=== PATIENT | female | born 1955 | race African-American/Black ===

== ENCOUNTER → 2016-10-02 | Outpatient (CLI) | payer MEDICARE, OTHER ==
[2016-04-08 16:25] VITALS: BP 137/65
[~2016-10-02] MED LIST: ACET80DR18 PEG; ALBU2.5V5 NEB; ALLO100T PO; AMLO10TA2 PO; AMLO5TAB2 PEG; ASPI325T4 PO; ASPI81TA9 PO; BACL10TA PO; BISA10SU55 RC; CHOL10007 PO; CHOL20004 PO; CINA60TA PO; CLON0.1T PO; CLON0.2T PO; CLON1PAT TD; DARB60VI SQ; DEXT15DR5 EACHEYE; DOXA2TAB2 PO; ENOX40DI SQ; ESCI10TA10 PO; FENT50AM IJ; FENT50AM IV; FERR324T5 PO; GABA-585 PO; GENT30CR TP; HYDR-2678 PO; HYDR-2868 PO; HYDR-2869 PO; HYDR100T24 PO; HYDR20VI5 IVP; INSU100C SQ; IPRA3AMP23 IH; ISOS20TA2 PO; ISOS30TA4 PO; LABE100T3 PO; LABE5VIA IV; LACT20SO PO; LANT1000 PO; LEVE500V12 IV; LEVE500V7 IV; LEVO150T5 PO; LIDO30CR TP; LISI40TA PO; LORA10TA3 PO; LORA2DIS2 IV; LOSA100T6 PO; LOSA25TA4 PO; METO25TA4 PO; METO50TA2 PO; METO5VIA4 IVP; NITR1PAT9 TD; NITR50IN IV; OMEG-33 PO; ONDA4AMP IVP; ORPH100T PO; PANT40TA5 PO; PRAV20TA2 PO; PROC10VI IVP; SEVE800T9 PO; VIT1TABL57 PO; [UNRECOGNIZED DRUG - CODE] IV; [UNRECOGNIZED DRUG - CODE] IV
--- NOTE | 2016-10-02 17:07 | CARD ---
APPROVED REPORT EXAM: Two-dimensional and M-mode echocardiogram with Doppler and color Doppler. Other Information Quality : Technically LimitedHR: 51bpm Rhythm : Bradycardia INDICATION Cardiomyopathy 2D DIMENSIONS RVDd2.5 (2.9-3.5cm)Left Atrium(2D)2.8 (1.6-4.0cm) IVSd1.2 (0.7-1.1cm)Aortic Root(2D)2.7 (2.0-3.7cm) LVDd4.2 (3.9-5.9cm)LVOT Diameter2.1 (1.8-2.4cm) PWd1.2 (0.7-1.1cm)LVDs3.6 (2.5-4.0cm) FS (%) 14.5 %SV24.3 ml LVEF(%)31.2 (>50%) Aortic Valve AoV Peak Justin.207.8cm/sAoV VTI47.4cm AO Peak GR.17.3mmHgLVOT Peak Justin.158.9cm/s LVOT VTI 39.21cmAO Mean GR.8mmHg EBONY (VMAX)1.10he8KCU (VTI)2.73cm2 AI P 1/2 Eqkt171fn Mitral Valve MV E Yzgvjprr63.0cm/sMV DECEL OCIM247xe MV A Erixlayl03.6cm/sMV KFW14aa E/A Ratio1.1MVA (PHT)2.62cm2 TDI E/Lateral E'8.7E/Medial E'11.7 Pulmonary Valve PV Peak Fysojaeh536.9cm/sPV Peak Grad.6mmHg RVOT VTI17.6cm Tricuspid Valve TR P. Ihhajkbu395sb/sTR Peak Gr.30mmHg Pulmonary Vein S1 Hsceqkmg22.2cm/sD2 Tsktkrdf73.9cm/s PVa xcqhazxw994smde LEFT VENTRICLE The left ventricle is normal size. There is mild concentric left ventricular hypertrophy. The left ve ntricular systolic function is normal and the ejection fraction is within normal range. The Ejection Fraction is 50-55%. There is normal LV segmental wall motion. Transmitral Doppler flow pattern is Gra de II-pseudonormal filling dynamics. RIGHT VENTRICLE The right ventricle is normal size. There is normal right ventricular wall thickness. The right ventr icular systolic function is normal. ATRIA The left atrium size is normal. The right atrium size is normal. The interatrial septum is intact wit h no evidence for an atrial septal defect or patent foramen ovale as noted on 2-D or Doppler imaging. AORTIC VALVE The aortic valve was poorly seen but appears moderately sclerotic and opens well. Cannot rule out emery or bioprosthetic valve replacement. Doppler and Color Flow revealed mild to moderate aortic regurgita tion. There is no significant aortic valvular stenosis. MITRAL VALVE Poorly seen mitral valve but it appears to open well. There appears to be mild mitral valve annular c alcification. There is no evidence of mitral valve prolapse. There is no mitral valve stenosis. Doppl er and Color Flow revealed mild mitral regurgitation. TRICUSPID VALVE Doppler and Color Flow revealed mild tricuspid regurgitation. The pulmonary artery systolic pressure is estimated at 35 mmHg. There is mild pulmonary hypertension. PULMONIC VALVE Poorly seen pulmonary valve. Doppler and Color Flow revealed mild pulmonic valvular regurgitation. GREAT VESSELS The aortic root is normal in size. The ascending aorta is normal in size. The pulmonary artery was po pramod seen. The IVC is normal in size and collapses >50% with inspiration. PERICARDIAL EFFUSION There is no evidence of significant pericardial effusion. Critical Notification Critical Value: No <Conclusion> The left ventricular systolic function is normal and the ejection fraction is within normal range. Th e Ejection Fraction is 50-55%. There is normal LV segmental wall motion. The aortic valve was poorly seen but appears moderately sclerotic and opens well. Cannot rule out emery or bioprosthetic valve replacement. Doppler and Color Flow revealed mild to moderate aortic regurgitation. Doppler and Color Flow revealed mild mitral regurgitation. Doppler and Color Flow revealed mild tricuspid regurgitation. The pulmonary artery systolic pressure is estimated at 35 mmHg. There is mild pulmonary hypertension. Poorly seen pulmonary valve. Doppler and Color Flow revealed mild pulmonic valvular regurgitation.
== END | disposition home or self-care (01) ==
LOC: ECHO 13:56
PROVIDERS: ATTEND Internal Medicine Nephrology
DX: I42.9 Cardiomyopathy, unspecified (principal); I27.2 Other secondary pulmonary hypertension; I35.1 Nonrheumatic aortic (valve) insufficiency; I34.0 Nonrheumatic mitral (valve) insufficiency; I07.1 Rheumatic tricuspid insufficiency
CPT/HCPCS: 93306

== ENCOUNTER 2017-06-12 15:34 | Inpatient (IN) | payer MEDICARE, OTHER ==
[2017-06-12] VITALS (13 sets, daily range): BP systolic 185–214; BP diastolic 73–122
[~2017-06-12] VITALS: Ht 170.2 cm; Wt 71.7 kg
[~2017-06-12 15:34] MED LIST changes: +ASPI-612 PO; -ASPI325T4 PO; +ASPI325T8 PO; -ASPI81TA9 PO; +CALC667T PO; +CHOL100014 PO; -CHOL10007 PO; -CHOL20004 PO; +CHOL200074 PO; -ESCI10TA10 PO; -LABE5VIA IV; +LABE5VIA14 IV; +LEXAPRO10 MG PO; +LORA0.5T PO; +MIDO2.5T PO
[2017-06-12 16:41] LABS: BASO % 0 % (0-3); EOS % 0 % (0-3); HEMATOCRIT 25.9 % (36.0-47.0); HEMOGLOBIN 8.6 g/dL (12.0-15.5); LYMPH # 0.5 x10^3/uL (1.0-4.8); LYMPH % 7 % (24-48); MEAN CORPUSCULAR HEMOGLOBIN 30 pg (25-35); MEAN CORPUSCULAR HGB CONC 33 g/dL (31-37); MEAN CORPUSCULAR VOLUME 90 fL (79-100); MONO % 9 % (0-9); NEUT % 84 % (31-73); PLATELET COUNT 158 x10^3/uL (140-400); RED BLOOD COUNT 2.87 x10^6/uL (3.50-5.40); WHITE BLOOD COUNT 7.9 x10^3/uL (4.0-11.0)
--- NOTE | 2017-06-12 16:42 | PHYS DOC ---
Past Medical History Past Medical History: Anxiety, High Cholesterol, Hypertension, Hypothyroid, Renal Failure, Seizure, Other Additional Past Medical Histor: kidney failure, murmer, HEMODIAYLSIS, "AORTIC RUPTURE" Past Surgical History: Other Additional Past Surgical Histo: thyroidectomy, peritoneal dialysis, "AORTIC REPAIR" Alcohol Use: None Drug Use: None Adult General Chief Complaint Chief Complaint: FEVER HPI HPI Patient is a 62 year old -[place] female with history of end-stage renal disease currently on dialysis who presents with fever, productive, progressive shortness of breath over the past 2 days. Patient is also had confusion, generalized weakness and fatigue. Patient has history of aspiration pneumonia. Patient was evaluated at her PCPs office prior to ED arrival and referred to ED for additional evaluation. He should dialyzes Saturday, and Saturdays. She completed her last dialysis session. Patient does not make any urine.[] Review of Systems Review of Systems Review symptoms as per history of present illness. All other review symptoms are negative. Current Medications Current Medications Current Medications Medications (Trade) Dose Ordered Sig/Filippo Start Time Stop Time Status Last Admin Dose Admin Albuterol/ Ipratropium (Duoneb) 3 ml 1X ONCE 06/12/17 16:45 06/12/17 16:46 DC 06/12/17 17:15 3 ML Piperacillin Sod/ Tazobactam Sod 3.375 gm/Sodium Chloride 50 ml @ 100 mls/hr 1X ONCE 06/12/17 19:15 06/12/17 19:44 Allergies Allergies Allergies Coded Allergies Type Severity Reaction Last Updated Verified morphine Allergy Intermediate 05/04/14 Yes Physical Exam Physical Exam Constitutional: Well developed, generally fatigued and weak appearing.. [] HENT: Normocephalic, atraumatic, bilateral external ears normal, oropharynx moist, no oral exudates, nose normal. [] Eyes: PERRLA, EOMI, conjunctiva normal, no discharge. [] Neck: Normal range of motion, no tenderness, supple, no stridor. [] Cardiovascular:Heart rate regular rhythm, no murmur [] Lungs & Thorax: Abrasions nonlabored, coarse wheezes bilaterally.[] Abdomen: Bowel sounds normal, soft, no tenderness. [] Skin: Warm, dry, no erythema, no rash. [] Extremities: No tenderness, no cyanosis, no clubbing, ROM intact, no edema. [] Neurologic: Alert and oriented 2 lower extremity paresis with leg brace, normal sensory function, no focal deficits noted. [] Current Patient Data Vital Signs Vital Signs Date Time Temp Pulse Resp B/P (MAP) Pulse Ox O2 Delivery O2 Flow Rate FiO2 06/12/17 17:09 89 Room Air 06/12/17 15:45 99.7 75 21 205/91 (129) 99.7 Lab Values Laboratory Tests Test 06/12/17 15:52 06/12/17 16:00 06/12/17 16:28 Influenza Type A Antigen Negative (NEGATIVE) Influenza Type B Antigen Negative (NEGATIVE) White Blood Count 7.9 x10^3/uL (4.0-11.0) Red Blood Count 2.87 x10^6/uL (3.50-5.40) L Hemoglobin 8.6 g/dL (12.0-15.5) L Hematocrit 25.9 % (36.0-47.0) L Mean Corpuscular Volume 90 fL (79-100) Mean Corpuscular Hemoglobin 30 pg (25-35) Mean Corpuscular Hemoglobin Concent 33 g/dL (31-37) Red Cell Distribution Width 17.0 % (11.5-14.5) H Platelet Count 158 x10^3/uL (140-400) Neutrophils (%) (Auto) 84 % (31-73) H Lymphocytes (%) (Auto) 7 % (24-48) L Monocytes (%) (Auto) 9 % (0-9) Eosinophils (%) (Auto) 0 % (0-3) Basophils (%) (Auto) 0 % (0-3) Neutrophils # (Auto) 6.7 x10^3uL (1.8-7.7) Lymphocytes # (Auto) 0.5 x10^3/uL (1.0-4.8) L Monocytes # (Auto) 0.7 x10^3/uL (0.0-1.1) Eosinophils # (Auto) 0.0 x10^3/uL (0.0-0.7) Basophils # (Auto) 0.0 x10^3/uL (0.0-0.2) Sodium Level 138 mmol/L (136-145) Potassium Level 4.1 mmol/L (3.5-5.1) Chloride Level 98 mmol/L (98-107) Carbon Dioxide Level 31 mmol/L (21-32) Anion Gap 9 (6-14) Blood Urea Nitrogen 26 mg/dL (7-20) H Creatinine 7.0 mg/dL (0.6-1.0) H Estimated GFR (Cockcroft-Gault) 7.2 BUN/Creatinine Ratio 4 (6-20) L Glucose Level 97 mg/dL (70-99) Lactic Acid Level 1.3 mmol/L (0.4-2.0) Calcium Level 9.3 mg/dL (8.5-10.1) Total Bilirubin 0.4 mg/dL (0.2-1.0) Aspartate Amino Transferase (AST) 29 U/L (15-37) Alanine Aminotransferase (ALT) 22 U/L (14-59) Alkaline Phosphatase 121 U/L (46-116) H Creatine Kinase 403 U/L (26-192) H Troponin I Quantitative 0.076 ng/mL (0.000-0.055) AR-Xuj-W-Type Natriuretic Peptide > 16253 pg/mL (0-124) H Total Protein 7.5 g/dL (6.4-8.2) Albumin 3.9 g/dL (3.4-5.0) Albumin/Globulin Ratio 1.1 (1.0-1.7) Procalcitonin 1.08 ng/mL (0.00-0.10) H O2 Saturation 85 % (92-99) L Arterial Blood pH 7.48 (7.35-7.45) H Arterial Blood pCO2 at Patient Temp 38 mmHg (35-46) Arterial Blood pO2 at Patient Temp 52 mmHg (65-108) L Arterial Blood HCO3 27 mmol/L (21-28) Arterial Blood Base Excess 4 mmol/L (-3-3) H FiO2 21 Laboratory Tests 06/12/17 16:00 Laboratory Tests 06/12/17 16:00 EKG EKG [EKG: Sinus rhythm, rate 69, no acute ST-T wave changes, QTC 456. No pathologic Q waves. EKG interpreted me.] Radiology/Procedures Radiology/Procedures [Chest x-ray: Pulmonary vascular congestion with possible effusions per radiology report.] Course & Med Decision Making Course & Med Decision Making Pertinent Labs and Imaging studies reviewed. (See chart for details) [Patient with generalized weakness fatigue and malaise with acute respiratory failure with hypoxia. Patient placed on oxygen. Evidence of congestive heart failure with effusions. No discrete infiltrate identified, however, possible aspiration pneumonia not ruled out. Patient is afebrile with normal white blood cell. Patient chronically hypertensive. Compliant with medications. Case reviewed with Dr. Lira in detail. Patient's are for inpatient hospitalization , dialysis consult and IV Zosyn. Dr. Amaro extension supervisor for nephrology consulted for coordination of inpatient dialysis.] Dragon Disclaimer Dragon Disclaimer This electronic medical record was generated, in whole or in part, using a voice recognition dictation system. Departure Departure Impression: Primary Impression: Acute respiratory failure Additional Impressions: Congestive heart failure Aspiration into lower respiratory tract Disposition: ADMITTED INPATIENT Admitting Physician: Leonel Lira Condition: GUARDED Referrals: BEBE CAMERON (PCP) Problem Qualifiers ARCENIO COHEN DO Jun 12, 2017 16:42
[2017-06-12] MEDS ORDERED: IPRATRPIUM/ALBUTEROL 0.5/2.5MG 3 ML NEBU. NEB ONE (16:45)
[2017-06-12 16:53] LABS: CALCIUM 9.3 mg/dL (8.5-10.1); GFR 7.2; POTASSIUM 4.1 mmol/L (3.5-5.1)
--- NOTE | 2017-06-12 16:56 | RAD ---
Indication fever and shortness of breath. A single view of the chest was obtained and is compared to an examination 03/02/2017. Postoperative changes are noted. There is mild enlargement of the cardiac silhouette. There are background changes suggesting moderate congestive heart failure. There are likely tiny pleural effusions. There is no consolidated pneumonia. A vascular stent is noted in the left axilla. An additional stent is seen in the mediastinum IMPRESSION: Mild cardiomegaly. Probable mild congestive heart failure. Small pleural effusions.
[2017-06-12 17:03] LABS: OBC FLU VALID
[2017-06-12 17:08] LABS: ALBUMIN 3.9 g/dL (3.4-5.0); ALBUMIN/GLOBULIN RATIO 1.1 (1.0-1.7); TOTAL BILIRUBIN 0.4 mg/dL (0.2-1.0); TOTAL PROTEIN 7.5 g/dL (6.4-8.2)
[2017-06-12 17:50] LABS: HCO3 ABG 27 mmol/L (21-28); PCO2 ABG 38 mmHg (35-46); PH ABG 7.48 (7.35-7.45); PO2 ABG 52 mmHg (65-108); SAT O2 ABG 85 % (92-99)
[2017-06-12 17:59] LABS: FIO2 ABG 21
[2017-06-12] MEDS ORDERED: ATOR10TA60 PO (18:26)
[2017-06-12] MEDS ORDERED: BACL10TA PO (18:27)
[2017-06-12] MEDS ORDERED: DOCU100C28 PO (18:28)
[2017-06-12] MEDS ORDERED: LACO50TA PO (18:30)
[2017-06-12] MEDS ORDERED: LACO100T PO ×2 (18:33)
[2017-06-12] MEDS ORDERED: LEVE100020 PO (18:36)
[2017-06-12] MEDS ORDERED: LEVE500T6 PO (18:37)
[2017-06-12] MEDS ORDERED: LEVO100T5 PO (18:38)
[2017-06-12] MEDS ORDERED: POLY255P PO (18:40)
[2017-06-12] MEDS ORDERED: MIDO5TAB PO (18:41)
[2017-06-12] MEDS ORDERED: PIPERACILLIN/TAZOBACTAM 3.375 GM in IV NORMAL SALINE 50ML 50 ML IV ONE (19:15)
[2017-06-12] MEDS ORDERED: ONDANSETRON PF 4 MG/2 ML VIAL. IV PRN (19:15)
[2017-06-12] MEDS ORDERED: hydrALAZINE 20 MG/ML VIAL. IVP PRN (20:30)
[2017-06-12] MEDS: IPRATRPIUM/ALBUTEROL 0.5/2.5MG 3 ML NEBU. NEB SCH (20:35)
[2017-06-12] MEDS: VANCOMYCIN PER PHARMACY MC PRN (20:36)
[2017-06-12] MEDS ORDERED: LEXAPRO20 MG PO (20:39)
[2017-06-12] MEDS ORDERED: LACT10SO35 PO (20:39)
[2017-06-12] MEDS ORDERED: LACTULOSE 20 GM/30 ML SOLUTION. PO PRN (20:45)
[2017-06-12] MEDS ORDERED: VANCOMYCIN 1.5 GM in IV NORMAL SALINE 500ML BAG 500 ML IV ONE (20:45)
[2017-06-12] MEDS: ACETAMINOPHEN 650 MG/20.3 ML SOLUTION. PEG PRN ×2 (21:00→21:01)
[2017-06-12] MEDS ORDERED: IV NORMAL SALINE 1000ML BAG 1,000 ML IV PRN (22:31)
[2017-06-12] MEDS ORDERED: DIALYSIS PATIENT. MC PRN (22:45)
[2017-06-12] MEDS: LACOSAMIDE 50 MG TABLET PO SCH (23:59)
[2017-06-12] MEDS: levETIRAcetam 500 MG TABLET PO SCH (23:59)
[2017-06-12] MEDS: BACLOFEN 10 MG TABLET. PO SCH (23:59)
[2017-06-13] VITALS (22 sets, daily range): BP systolic 111–190; BP diastolic 47–81
[2017-06-13] MEDS ORDERED: hydrALAZINE 20 MG/ML VIAL. IVP PRN (00:30)
[2017-06-13] MEDS: HYDROcodone/APAP 5/325MG 1 TAB TABLET PO PRN (00:38)
[2017-06-13] MEDS: PIPERACILLIN/TAZOBACTAM 2.25 GM in IV NORMAL SALINE 50ML 50 ML IV SCH ×3 (05:43→21:30)
--- NOTE | 2017-06-13 06:47 | EKG ---
[facility] [address] [place] [address] Test Date: 2017-06-12 Test Time: 16:49:59 Pat Name: OPHELIA RODRIGUEZ Department: Room: 113 1 Gender: F [employer]: : 1955 Requested By: ARCENIO COHEN Order Number: [id number] Reading MD: Cielo Ceron Measurements Intervals Macy Rate: 69 P: 30 WI: 130 QRS: -6 QRSD: 86 T: 55 QT: 424 QTc: 456 Interpretive Statements SINUS RHYTHM LEFT ATRIAL ABNORMALITY LEFTWARD AXIS Electronically Signed On 06-16-2017 15:29:12 CDT by Cielo Ceron
[2017-06-13] MEDS: LEVOTHYROXINE 100 MCG TABLET PO SCH (07:25)
[2017-06-13] MEDS: PANTOPRAZOLE 40 MG TABLET.DR. PO SCH (07:37)
[2017-06-13 08:27] LABS: BASO % 1 % (0-3); EOS % 1 % (0-3); HEMATOCRIT 23.5 % (36.0-47.0); HEMOGLOBIN 7.8 g/dL (12.0-15.5); LYMPH # 0.6 x10^3/uL (1.0-4.8); LYMPH % 10 % (24-48); MEAN CORPUSCULAR HEMOGLOBIN 30 pg (25-35); MEAN CORPUSCULAR HGB CONC 33 g/dL (31-37); MEAN CORPUSCULAR VOLUME 90 fL (79-100); MONO % 12 % (0-9); NEUT % 77 % (31-73); PLATELET COUNT 130 x10^3/uL (140-400); RED BLOOD COUNT 2.62 x10^6/uL (3.50-5.40); RED CELL DISTRIBUTION WIDTH 16.6 % (11.5-14.5); WHITE BLOOD COUNT 5.8 x10^3/uL (4.0-11.0)
[2017-06-13] MEDS: CETIRIZINE HCL 10 MG TABLET. PO SCH (08:35)
[2017-06-13] MEDS: LACOSAMIDE 50 MG TABLET PO SCH ×2 (08:35→21:21)
[2017-06-13] MEDS: CALCIUM ACETATE 667 MG CAPSULE PO SCH ×3 (08:35→18:07)
[2017-06-13 08:36] LABS: CALCIUM 8.8 mg/dL (8.5-10.1); CREATININE 4.4 mg/dL (0.6-1.0); GFR 12.3; POTASSIUM 3.6 mmol/L (3.5-5.1)
[2017-06-13] MEDS: CHOLECALCIFEROL (VITAMIN D3) 1,000 UNIT TABLET PO SCH (08:36)
[2017-06-13] MEDS: levETIRAcetam 500 MG TABLET PO SCH ×2 (08:36→21:21)
[2017-06-13] MEDS: CITALOPRAM 20 MG TABLET. PO SCH (08:36)
[2017-06-13] MEDS: ATORVASTATIN CALCIUM 10 MG TABLET. PO SCH (08:36)
[2017-06-13] MEDS: POLYETHYLENE GLYCOL 3350 17 GM PACKET. PO SCH (08:36)
[2017-06-13] MEDS: ASPIRIN ENTERIC COATED 81 MG TABLET.DR. PO SCH (08:36)
[2017-06-13] MEDS: IPRATRPIUM/ALBUTEROL 0.5/2.5MG 3 ML NEBU. NEB SCH ×3 (08:37→15:40)
[2017-06-13] MEDS: HEPARIN PF for SUB-Q USE 5,000 UNIT/0.5 ML VIAL. SQ SCH ×2 (08:39→21:25)
--- NOTE | 2017-06-13 09:05 | PDOC ---
Infectious Disease Note Vital Sign Vital Signs Vital Signs Date Time Temp Pulse Resp B/P (MAP) Pulse Ox O2 Delivery O2 Flow Rate FiO2 06/13/17 08:38 100 Nasal Cannula 1.5 06/13/17 07:00 16 118/57 (77) 06/13/17 06:00 55 06/13/17 04:00 99.7 99.7 Labs Lab Laboratory Tests Test 06/12/17 15:52 06/12/17 16:00 06/12/17 16:28 06/13/17 08:10 Influenza Type A Antigen Negative (NEGATIVE) Influenza Type B Antigen Negative (NEGATIVE) White Blood Count 7.9 x10^3/uL (4.0-11.0) 5.8 x10^3/uL (4.0-11.0) Red Blood Count 2.87 x10^6/uL (3.50-5.40) 2.62 x10^6/uL (3.50-5.40) Hemoglobin 8.6 g/dL (12.0-15.5) 7.8 g/dL (12.0-15.5) Hematocrit 25.9 % (36.0-47.0) 23.5 % (36.0-47.0) Mean Corpuscular Volume 90 fL (79-100) 90 fL (79-100) Mean Corpuscular Hemoglobin 30 pg (25-35) 30 pg (25-35) Mean Corpuscular Hemoglobin Concent 33 g/dL (31-37) 33 g/dL (31-37) Red Cell Distribution Width 17.0 % (11.5-14.5) 16.6 % (11.5-14.5) Platelet Count 158 x10^3/uL (140-400) 130 x10^3/uL (140-400) Neutrophils (%) (Auto) 84 % (31-73) 77 % (31-73) Lymphocytes (%) (Auto) 7 % (24-48) 10 % (24-48) Monocytes (%) (Auto) 9 % (0-9) 12 % (0-9) Eosinophils (%) (Auto) 0 % (0-3) 1 % (0-3) Basophils (%) (Auto) 0 % (0-3) 1 % (0-3) Neutrophils # (Auto) 6.7 x10^3uL (1.8-7.7) 4.4 x10^3uL (1.8-7.7) Lymphocytes # (Auto) 0.5 x10^3/uL (1.0-4.8) 0.6 x10^3/uL (1.0-4.8) Monocytes # (Auto) 0.7 x10^3/uL (0.0-1.1) 0.7 x10^3/uL (0.0-1.1) Eosinophils # (Auto) 0.0 x10^3/uL (0.0-0.7) 0.0 x10^3/uL (0.0-0.7) Basophils # (Auto) 0.0 x10^3/uL (0.0-0.2) 0.0 x10^3/uL (0.0-0.2) Sodium Level 138 mmol/L (136-145) 140 mmol/L (136-145) Potassium Level 4.1 mmol/L (3.5-5.1) 3.6 mmol/L (3.5-5.1) Chloride Level 98 mmol/L (98-107) 100 mmol/L (98-107) Carbon Dioxide Level 31 mmol/L (21-32) 32 mmol/L (21-32) Anion Gap 9 (6-14) 8 (6-14) Blood Urea Nitrogen 26 mg/dL (7-20) 14 mg/dL (7-20) Creatinine 7.0 mg/dL (0.6-1.0) 4.4 mg/dL (0.6-1.0) Estimated GFR (Cockcroft-Gault) 7.2 12.3 BUN/Creatinine Ratio 4 (6-20) Glucose Level 97 mg/dL (70-99) 94 mg/dL (70-99) Lactic Acid Level 1.3 mmol/L (0.4-2.0) Calcium Level 9.3 mg/dL (8.5-10.1) 8.8 mg/dL (8.5-10.1) Total Bilirubin 0.4 mg/dL (0.2-1.0) Aspartate Amino Transf (AST/SGOT) 29 U/L (15-37) Alanine Aminotransferase (ALT/SGPT) 22 U/L (14-59) Alkaline Phosphatase 121 U/L (46-116) Creatine Kinase 403 U/L (26-192) Troponin I Quantitative 0.076 ng/mL (0.000-0.055) NP-Yco-G-Type Natriuretic Peptide > 60365 pg/mL (0-124) Total Protein 7.5 g/dL (6.4-8.2) Albumin 3.9 g/dL (3.4-5.0) Albumin/Globulin Ratio 1.1 (1.0-1.7) Procalcitonin 1.08 ng/mL (0.00-0.10) O2 Saturation 85 % (92-99) Arterial Blood pH 7.48 (7.35-7.45) Arterial Blood pCO2 at Patient Temp 38 mmHg (35-46) Arterial Blood pO2 at Patient Temp 52 mmHg (65-108) Arterial Blood HCO3 27 mmol/L (21-28) Arterial Blood Base Excess 4 mmol/L (-3-3) FiO2 21 Objective Assessment Fever, ? viral ESRD SOB, chf Weakness Plan Plan of Care vanc and kalisyn check cultures supportive care MARSHA GOODMAN MD Jun 13, 2017 09:05
--- NOTE | 2017-06-13 10:09 | CONS ---
DATE OF CONSULTATION: 06/13/2017 REQUESTING PHYSICIAN: Dr. Lira. REQUESTING PHYSICIAN: Leonel Lira M.D. REASON FOR CONSULTATION: Fever. HISTORY OF PRESENT ILLNESS: This is a 62-year-old -[place] female with history of end-stage renal disease, on hemodialysis; who came in with 3-day history of not feeling well, progressive weakness, progressive shortness of breath, some nausea, had vomited, fever and headache. The patient was brought in. The patient had 101.5 temperature and normal lactic acid. The patient responded to fluids. She is feeling much better. She states the headache is gone. The patient received vancomycin and Zosyn. The patient is currently alert, awake, slow in speaking but appropriate in answering. She states she has had some nausea and vomiting. The headache is gone. The nausea is improved. Denies any chest pain or abdominal pain. Denies any urinary symptoms. Denies any visual symptoms or back pain. PAST MEDICAL HISTORY: Positive for end-stage renal disease, on hemodialysis; has hypertension; hypothyroidism; seizure disorder and has had thyroidectomy. She had been on peritoneal dialysis. Now, she has AV graft and anxiety disorder. SOCIAL HISTORY: Negative for smoking, alcohol use or drug use. The patient lives with her and son. ALLERGIES: Listed allergic to MORPHINE. CURRENT MEDICATIONS: Reviewed. The patient is on vancomycin and Zosyn. REVIEW OF SYSTEMS: As per HPI. All other systems reviewed and are negative. PHYSICAL EXAMINATION: GENERAL: Alert and oriented female, not in distress. VITAL SIGNS: Stable. T-max 101.5. HEENT: NAD. NECK: Stiff but she states she always has a neck problem and nothing new right now. LUNGS: Clear. HEART: S1 and S2 regular. ABDOMEN: Benign. EXTREMITIES: No edema or cyanosis. SKIN: Unremarkable. NEUROLOGICAL: The patient is neurologically alert, awake and appropriate. No focal deficit. LABORATORY DATA: White count is normal at 5.8; hemoglobin 7.8 and platelets are 130,000. BUN and creatinine is 14 and 4.4. Troponin 0.076. BNP 35,000. Influenza screen was negative. Blood culture is pending. Chest x-ray is showing cardiomegaly with mild pulmonary vascular congestion and small pleural effusions. IMPRESSION: 1. Fever may have been likely to be viral in origin, although she is a dialysis patient and secondary bacterial infection is quite common. 2. Weakness and fatigue and headache. Again, may go with viral illness. 3. Shortness of breath, probably combination of congestive heart failure and/or she may have aspirated after vomiting. Discussed with Dr Lira RECOMMENDATIONS: Recommend I would check the cultures. Continue vancomycin and Zosyn, supportive care and we will continue to follow. If she continues to have problem, we will have to do more investigation. Thank you very much Dr. Lira for giving me the opportunity to participate in this patient's care. MARSHA GOODMAN MD DR: HUGH/dennis JOB#: [id number] / [id number] TIAN
[2017-06-13] MEDS: VANCOMYCIN PER PHARMACY MC PRN (10:27)
--- NOTE | 2017-06-13 10:35 | PDOC ---
Provider Note Provider Note Pt seen in ICU. H&P #[id number] .dictated. spoke with ID and RN LINA ANDERSON MD Jun 13, 2017 10:35
--- NOTE | 2017-06-13 11:28 | PDOC2 ---
CONSULT Date of Consult Date of Consult DATE: 06/13/17 TIME: 11:24 Reason for Consult Reason for Consult: ESRD Referring Physician Referring Physician: JUSTIN Identification/Chief Complaint Chief Complaint SOB,HIGH, FEVERS AND N/V Problems: Source Source: Chart review, Patient History of Present Illness Reason for Visit: THIS IS A 62 YR OLD WITH ESRD ON HD ON MWF. PRESENTS WITH SOB AND CXRAY SHOWED PULMONARY VASCULAR CONGESTION. ALSO HX OF HEADACHE, FEVERS AND N/V FOR SEVERAL DAYS. LABS ARE C/W ESRD Past Medical History Cardiovascular: CHF, HTN, Valve insufficiency, Other Pulmonary: Previously Intubated, Pneumonia, Other CENTRAL NERVOUS SYSTEM: CVA, Seizure GI: Peptic Ulcer disease, Other Heme/Onc: Anemia NOS Hepatobiliary: Other Psych: Anxiety Rheumatologic: Gout Infectious disease: Other Renal/: Acute renal failure Endocrine: Hypothyroidism, Hyperparathyroidism Past Surgical History Past Surgical History: CABG, Cataract Removal, Other Family History Family History: Diabetes, Hypertension, Other Social History ALCOHOL: none Drugs: None Lives: with Family Domestic Violence: Neg Current Problem List Problem List Problems Medical Problems: (1) Acute respiratory failure Status: Acute (2) Aspiration into lower respiratory tract Status: Acute (3) Congestive heart failure Status: Acute Current Medications Current Medications Current Medications Albuterol/ Ipratropium (Duoneb) 3 ml 1X ONCE NEB Last administered on 17:15; Start 06/12/17 at 16:45; Stop 06/12/17 at 16:46; Status DC Piperacillin Sod/ Tazobactam Sod 3.375 gm/Sodium Chloride 50 ml @ 100 mls/hr 1X ONCE IV Last administered on 06/12/17 19:11; Start 06/12/17 at 19:15; Stop 06/12/17 at 19:44; Status DC Ondansetron HCl (Zofran) 4 mg PRN Q8HRS PRN IV NAUSEA/VOMITING; Start at 19:15; Stop 06/13/17 at 19:14 Albuterol/ Ipratropium (Duoneb) 3 ml RTQID NEB Last administered on 06/13/17 08:37; Start 06/12/17 at 20:00; Stop 06/13/17 at 19:59 Vancomycin HCl 1.5 gm/Sodium Chloride 500 ml @ 250 mls/hr 1X ONCE IV Last administered on 06/13/17 00:00; Start 06/12/17 at 20:45; Stop 06/12/17 at 22 :44; Status DC Vancomycin HCl (Vanco Per Pharmacy) 1 each PRN DAILY PRN MC SEE COMMENTS Last administered on 06/13/17 10:27; Start 06/12/17 at 20:30 Piperacillin Sod/ Tazobactam Sod 2.25 gm/Sodium Chloride 50 ml @ 100 mls/hr Q8HRS IV Last administered on 06/13/17 05:43; Start 06/13/17 at 06:00 Acetaminophen (Tylenol) 650 mg PRN Q8HRS PRN PEG MILD PAIN / TEMP Last administered on 06/12/17 21:01; Start 06/12/17 at 20:30; Stop 06/13/17 at 07 :21; Status DC Hydralazine HCl (Apresoline Inj) 10 mg PRN Q4HRS PRN IVP ELEVATED BP, SEE COMMENTS Last administered on 06/12/17 21:15; Start 06/12/17 at 20:30; Stop 06/13/17 at 00:28; Status DC Vancomycin HCl 1 each 1X ONCE MC ; Start 06/14/17 at 05:00; Stop 06/14/17 at 05:01 Aspirin (Ecotrin) 81 mg DAILY PO Last administered on 06/13/17 08:36; Start 06/13/17 at 09:00 Atorvastatin Calcium (Lipitor) 5 mg DAILY PO Last administered on 06/13/17 08 :36; Start 06/13/17 at 09:00 Baclofen (Lioresal) 5 mg HS PO Last administered on 06/12/17 23:59; Start at 21:00 Lacosamide (Vimpat) 50 mg 3X/WEEK PO ; Start 06/14/17 at 09:00 Levetiracetam (Keppra) 250 mg 3X/WEEK PO ; Start 06/14/17 at 09:00 Levothyroxine Sodium (Synthroid) 100 mcg DAILY07 PO Last administered on 07:25; Start 06/13/17 at 07:00 Pantoprazole Sodium (Protonix) 40 mg DAILYAC PO Last administered on 07:37; Start 06/13/17 at 07:30 Polyethylene Glycol (miraLAX PACKET) 17 gm DAILY PO Last administered on 08:36; Start 06/13/17 at 09:00 Calcium Acetate (Phoslo) 1,334 mg BIDACBL PO Last administered on 06/13/17 08 :35; Start 06/13/17 at 07:30 Citalopram Hydrobromide (CeleXA) 40 mg DAILY PO Last administered on 08:36; Start 06/13/17 at 09:00 Lacosamide (Vimpat) 100 mg BID PO Last administered on 06/13/17 08:35; Start 06/12/17 at 22:00 Levetiracetam (Keppra) 1,000 mg BID PO Last administered on 06/13/17 08:36; Start 06/12/17 at 22:00 Cetirizine HCl (ZyrTEC) 10 mg DAILY07 PO Last administered on 06/13/17 08:35 ; Start 06/13/17 at 07:45 Vitamin D (Vitamin D3) 1,000 unit DAILY PO Last administered on 06/13/17 08: 36; Start 06/13/17 at 09:00 Lactulose 20 gm PRN DAILY PRN PO CONSTIPATION; Start 06/12/17 at 20:45 Heparin Sodium (Porcine) (Heparin Sq) 5,000 unit Q12HR SQ Last administered on 06/13/17 08:39; Start 06/13/17 at 09:00 Sodium Chloride 1,000 ml @ 400 mls/hr Q2H30M PRN IV PATENCY; Start 06/12/17 at 22:31; Stop 06/13/17 at 10:30; Status DC Info (PHARMACY MONITORING -- do not chart) 1 each PRN DAILY PRN MC SEE COMMENTS ; Start 06/12/17 at 22:45 Hydralazine HCl (Apresoline Inj) 10 mg PRN Q3HRS PRN IVP ELEVATED BP, SEE COMMENTS Last administered on 06/13/17 00:37; Start 06/13/17 at 00:30 Acetaminophen/ Hydrocodone Bitart (Lortab 5/325) 1 tab PRN Q6HRS PRN PO MODERATE PAIN Last administered on 10/12/17at 00:38; Start 06/13/17 at 00:30 Acetaminophen (Tylenol) 650 mg PRN Q8HRS PRN PO FEVER; Start 06/13/17 at 07:30 Active Scripts Active Reported Generlac (Lactulose) 10 Gm/15 Ml Solution 20 Gm PO Lexapro (Escitalopram Oxalate) 20 Mg Tablet 1 Tab PO DAILY Polyethylene Glycol 3350 255 Gm Powder 17 Gm PO DAILY Levothyroxine Sodium 100 Mcg Tablet 1 Tab PO DAILY Levetiracetam 500 Mg Tablet 250 Mg PO 3X/WEEK Keppra (Levetiracetam) 1,000 Mg Tablet 1,000 Mg PO BID Vimpat (Lacosamide) 100 Mg Tablet 100 Mg PO BID Vimpat (Lacosamide) 50 Mg Tablet 50 Mg PO 3X/WEEK Take after Dialysis Baclofen 10 Mg Tablet 5 Mg PO HS Atorvastatin Calcium 10 Mg Tablet 5 Mg PO DAILY Calcium Acetate 667 Mg Tablet 1,334 Mg PO BIDACBL Vitamin D3 (Cholecalciferol (Vitamin D3)) 1,000 Unit Capsule 1,000 Unit PO Loratadine 10 Mg Tablet 1 Tab PO DAILY Aspirin Ec (Aspirin) 81 Mg Tablet.dr 1 Tab PO DAILY Pantoprazole Sodium 40 Mg Tablet.dr 40 Mg PO DAILY Allergies Allergies: Coded Allergies: morphine (Verified Allergy, Intermediate, 05/04/14) ROS General: YES: Chills, Fatigue, Malaise, Appetite PSYCHOLOGICAL ROS: YES: Anxiety, Depression Eyes: Yes Decreased vision HEENT: YES: Heacaches Respiratory: YES: Cough, Shortness of breath Gastrointestinal: Yes Constipation Genitourinary: YES Other (ANURIA) Musculoskeletal: Yes Muscular Weakness Neurological: Yes Weakness Skin: Yes Dry Skin Physical Exam General: Alert, Oriented X3, Cooperative, No acute distress HEENT: Atraumatic, PERRLA Lungs: Other (FEW BASILAR RALES) Abdomen: Normal bowel sounds, Soft, No tenderness Extremities: No clubbing, No edema Skin: No rashes Neuro: Other (DYSARTHRIA DUE TO CVA HX) MUSCULOSKELETAL: Other (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) Vitals VITALS Vital Signs Date Time Temp Pulse Resp B/P (MAP) Pulse Ox O2 Delivery O2 Flow Rate FiO2 06/13/17 11:00 62 20 140/57 (84) 99 Nasal Cannula 2.0 06/13/17 08:00 99.0 99.0 Labs Labs Laboratory Tests Test 06/12/17 15:52 06/12/17 16:00 06/12/17 16:28 06/13/17 08:10 Influenza Type A Antigen Negative (NEGATIVE) Influenza Type B Antigen Negative (NEGATIVE) White Blood Count 7.9 x10^3/uL (4.0-11.0) 5.8 x10^3/uL (4.0-11.0) Red Blood Count 2.87 x10^6/uL (3.50-5.40) 2.62 x10^6/uL (3.50-5.40) Hemoglobin 8.6 g/dL (12.0-15.5) 7.8 g/dL (12.0-15.5) Hematocrit 25.9 % (36.0-47.0) 23.5 % (36.0-47.0) Mean Corpuscular Volume 90 fL (79-100) 90 fL (79-100) Mean Corpuscular Hemoglobin 30 pg (25-35) 30 pg (25-35) Mean Corpuscular Hemoglobin Concent 33 g/dL (31-37) 33 g/dL (31-37) Red Cell Distribution Width 17.0 % (11.5-14.5) 16.6 % (11.5-14.5) Platelet Count 158 x10^3/uL (140-400) 130 x10^3/uL (140-400) Neutrophils (%) (Auto) 84 % (31-73) 77 % (31-73) Lymphocytes (%) (Auto) 7 % (24-48) 10 % (24-48) Monocytes (%) (Auto) 9 % (0-9) 12 % (0-9) Eosinophils (%) (Auto) 0 % (0-3) 1 % (0-3) Basophils (%) (Auto) 0 % (0-3) 1 % (0-3) Neutrophils # (Auto) 6.7 x10^3uL (1.8-7.7) 4.4 x10^3uL (1.8-7.7) Lymphocytes # (Auto) 0.5 x10^3/uL (1.0-4.8) 0.6 x10^3/uL (1.0-4.8) Monocytes # (Auto) 0.7 x10^3/uL (0.0-1.1) 0.7 x10^3/uL (0.0-1.1) Eosinophils # (Auto) 0.0 x10^3/uL (0.0-0.7) 0.0 x10^3/uL (0.0-0.7) Basophils # (Auto) 0.0 x10^3/uL (0.0-0.2) 0.0 x10^3/uL (0.0-0.2) Sodium Level 138 mmol/L (136-145) 140 mmol/L (136-145) Potassium Level 4.1 mmol/L (3.5-5.1) 3.6 mmol/L (3.5-5.1) Chloride Level 98 mmol/L (98-107) 100 mmol/L (98-107) Carbon Dioxide Level 31 mmol/L (21-32) 32 mmol/L (21-32) Anion Gap 9 (6-14) 8 (6-14) Blood Urea Nitrogen 26 mg/dL (7-20) 14 mg/dL (7-20) Creatinine 7.0 mg/dL (0.6-1.0) 4.4 mg/dL (0.6-1.0) Estimated GFR (Cockcroft-Gault) 7.2 12.3 BUN/Creatinine Ratio 4 (6-20) Glucose Level 97 mg/dL (70-99) 94 mg/dL (70-99) Lactic Acid Level 1.3 mmol/L (0.4-2.0) Calcium Level 9.3 mg/dL (8.5-10.1) 8.8 mg/dL (8.5-10.1) Total Bilirubin 0.4 mg/dL (0.2-1.0) Aspartate Amino Transf (AST/SGOT) 29 U/L (15-37) Alanine Aminotransferase (ALT/SGPT) 22 U/L (14-59) Alkaline Phosphatase 121 U/L (46-116) Creatine Kinase 403 U/L (26-192) Troponin I Quantitative 0.076 ng/mL (0.000-0.055) GI-Ujg-K-Type Natriuretic Peptide > 21304 pg/mL (0-124) Total Protein 7.5 g/dL (6.4-8.2) Albumin 3.9 g/dL (3.4-5.0) Albumin/Globulin Ratio 1.1 (1.0-1.7) Procalcitonin 1.08 ng/mL (0.00-0.10) O2 Saturation 85 % (92-99) Arterial Blood pH 7.48 (7.35-7.45) Arterial Blood pCO2 at Patient Temp 38 mmHg (35-46) Arterial Blood pO2 at Patient Temp 52 mmHg (65-108) Arterial Blood HCO3 27 mmol/L (21-28) Arterial Blood Base Excess 4 mmol/L (-3-3) FiO2 21 Laboratory Tests Test 06/12/17 15:52 06/12/17 16:00 06/12/17 16:28 06/13/17 08:10 Influenza Type A Antigen Negative (NEGATIVE) Influenza Type B Antigen Negative (NEGATIVE) White Blood Count 7.9 x10^3/uL (4.0-11.0) 5.8 x10^3/uL (4.0-11.0) Red Blood Count 2.87 x10^6/uL (3.50-5.40) 2.62 x10^6/uL (3.50-5.40) Hemoglobin 8.6 g/dL (12.0-15.5) 7.8 g/dL (12.0-15.5) Hematocrit 25.9 % (36.0-47.0) 23.5 % (36.0-47.0) Mean Corpuscular Volume 90 fL (79-100) 90 fL (79-100) Mean Corpuscular Hemoglobin 30 pg (25-35) 30 pg (25-35) Mean Corpuscular Hemoglobin Concent 33 g/dL (31-37) 33 g/dL (31-37) Red Cell Distribution Width 17.0 % (11.5-14.5) 16.6 % (11.5-14.5) Platelet Count 158 x10^3/uL (140-400) 130 x10^3/uL (140-400) Neutrophils (%) (Auto) 84 % (31-73) 77 % (31-73) Lymphocytes (%) (Auto) 7 % (24-48) 10 % (24-48) Monocytes (%) (Auto) 9 % (0-9) 12 % (0-9) Eosinophils (%) (Auto) 0 % (0-3) 1 % (0-3) Basophils (%) (Auto) 0 % (0-3) 1 % (0-3) Neutrophils # (Auto) 6.7 x10^3uL (1.8-7.7) 4.4 x10^3uL (1.8-7.7) Lymphocytes # (Auto) 0.5 x10^3/uL (1.0-4.8) 0.6 x10^3/uL (1.0-4.8) Monocytes # (Auto) 0.7 x10^3/uL (0.0-1.1) 0.7 x10^3/uL (0.0-1.1) Eosinophils # (Auto) 0.0 x10^3/uL (0.0-0.7) 0.0 x10^3/uL (0.0-0.7) Basophils # (Auto) 0.0 x10^3/uL (0.0-0.2) 0.0 x10^3/uL (0.0-0.2) Sodium Level 138 mmol/L (136-145) 140 mmol/L (136-145) Potassium Level 4.1 mmol/L (3.5-5.1) 3.6 mmol/L (3.5-5.1) Chloride Level 98 mmol/L (98-107) 100 mmol/L (98-107) Carbon Dioxide Level 31 mmol/L (21-32) 32 mmol/L (21-32) Anion Gap 9 (6-14) 8 (6-14) Blood Urea Nitrogen 26 mg/dL (7-20) 14 mg/dL (7-20) Creatinine 7.0 mg/dL (0.6-1.0) 4.4 mg/dL (0.6-1.0) Estimated GFR (Cockcroft-Gault) 7.2 12.3 BUN/Creatinine Ratio 4 (6-20) Glucose Level 97 mg/dL (70-99) 94 mg/dL (70-99) Lactic Acid Level 1.3 mmol/L (0.4-2.0) Calcium Level 9.3 mg/dL (8.5-10.1) 8.8 mg/dL (8.5-10.1) Total Bilirubin 0.4 mg/dL (0.2-1.0) Aspartate Amino Transf (AST/SGOT) 29 U/L (15-37) Alanine Aminotransferase (ALT/SGPT) 22 U/L (14-59) Alkaline Phosphatase 121 U/L (46-116) Creatine Kinase 403 U/L (26-192) Troponin I Quantitative 0.076 ng/mL (0.000-0.055) MD-Ynd-B-Type Natriuretic Peptide > 00976 pg/mL (0-124) Total Protein 7.5 g/dL (6.4-8.2) Albumin 3.9 g/dL (3.4-5.0) Albumin/Globulin Ratio 1.1 (1.0-1.7) Procalcitonin 1.08 ng/mL (0.00-0.10) O2 Saturation 85 % (92-99) Arterial Blood pH 7.48 (7.35-7.45) Arterial Blood pCO2 at Patient Temp 38 mmHg (35-46) Arterial Blood pO2 at Patient Temp 52 mmHg (65-108) Arterial Blood HCO3 27 mmol/L (21-28) Arterial Blood Base Excess 4 mmol/L (-3-3) FiO2 21 Assessment/Plan Assessment/Plan IMP PROB GASTROENTERITIS ANEMIA PULMONARY VASCULAR CONGESTION HTN ESRD HX CVA PLAN HD LAST NIGHT AND UF TO DW NEXT HD TOMORROW ARANESP ANTIBIOTICS SRAVAN LEWIS MD Jun 13, 2017 11:28
--- NOTE | 2017-06-13 17:49 | HP ---
ADMIT DATE: 06/12/2017 ATTENDING PHYSICIAN: Dr. Anderson. PRIMARY CARE PHYSICIAN: Dr. Hubbard. REASON FOR ADMISSION TO THE HOSPITAL: Fever, cough, short of breath for the last 2-3 days. The patient has end-stage renal disease, on hemodialysis, seen Dr. Hubbard in the office, was sent to the Emergency Room for evaluation of possible pneumonia. The patient had a fever 102. Chest x-ray, some infiltrates, was admitted with diagnosis of healthcare-associated pneumonia. The patient is a hemodialysis patient. PAST MEDICAL HISTORY: Has a history of stroke. She had an aortic rupture, end-stage renal disease on hemodialysis, kidney failure, seizures, hypothyroidism. PAST SURGICAL HISTORY: Thyroidectomy, had a peritoneal dialysis in the past, now on hemodialysis, aortic dissection and repair done. ALLERGIES: TO MORPHINE. MEDICATIONS AT HOME: Aspirin 81 mg daily, atorvastatin 10 mg daily, baclofen 10 mg at bedtime, Caltrate twice a day, vitamin D 1000 units daily, Lexapro 20 mg daily, Vimpat 50 mg 3 times a week, Vimpat 100 mg twice a day, lactulose 20 grams daily, Keppra 1000 mg twice a day plus 250 mg Keppra 3 times a week, levothyroxine 100 mcg daily, loratadine 10 mg daily, Protonix 40 mg daily, MiraLax 17 grams daily. PERSONAL HISTORY: No history of smoking, alcohol or drug abuse. SOCIAL HISTORY: Lives at home. She is ambulating with a walker to wheelchair level, goes to dialysis 3 times a week, Saturday, Saturday and Saturday. FAMILY HISTORY: Hypertension. REVIEW OF SYMPTOMS: CARDIAC-PALMER: No chest pain. GASTROINTESTINAL: No nausea. Complains of slight stiffness in the neck and fever, not doing well for the last 2 days. PHYSICAL EXAMINATION: GENERAL: Elderly female in the ICU. VITAL SIGNS: At the time of admission shows a temperature 101.5, pulse 75, respirations 20, blood pressure 205/90, 93 on room air. HEENT: Head is atraumatic. Pupils equal. Oral cavity: No congestion. NECK: History of tracheostomy in the past, is closed. CHEST: Scar of aortic dissection surgery. CARDIOVASCULAR: S1, S2. LUNGS: Diminished breath sounds. No wheezing. ABDOMEN: Soft, bowel sounds present, no mass palpable. EXTERNAL GENITALIA: No Mora. RECTAL: Deferred. EXTREMITIES: The patient has a flexion contracture on the left side from previous strokes. LABORATORY DATA: Shows a white count of 8, hemoglobin 8, platelets 158. Electrolytes show sodium 138, potassium 4.1, chloride 98, bicarb 31, BUN 26, creatinine 7. LFTs were normal. Lactic acid 1.3. Influenza A and B was negative. Blood culture shows gram-positive cocci 1 in 6. Chest x-ray shows cardiomegaly, small pleural effusion. FINAL IMPRESSION: 1. Febrile illness. 2. History of previous cerebrovascular accident. 3. History of previous aortic dissection, had surgery. 4. End-stage renal disease on hemodialysis 3 times a week. 5. History of seizures. 6. Hypertension. 7. Hyperlipidemia. PLAN: At this time, was admitted to the hospital. Culture was done. Blood cultures, urine and sputum, started on broad-spectrum antibiotic vancomycin and Zosyn. ID was consulted. The patient had flu ruled out, was given hemodialysis last night, again tomorrow. Renal was consulted and see how the patient's condition improves. LINA ANDERSON MD DR: MYRIAM/dennis JOB#: [id number] / [id number] BEBE Campa
[2017-06-13] MEDS: ACETAMINOPHEN 325 MG TABLET. PO PRN (19:25)
[2017-06-13] MEDS ORDERED: DARBEPOETIN ALFA 60 MCG/0.3 ML DISP.SYRIN. SQ SCH (21:00)
[2017-06-13] MEDS: BACLOFEN 10 MG TABLET. PO SCH (21:21)
[2017-06-14 03:00] VITALS: BP 136/57
[2017-06-14] MEDS ORDERED: VANCOMYCIN RANDOM LEVEL. MC ONE (05:00)
[2017-06-14] MEDS: PIPERACILLIN/TAZOBACTAM 2.25 GM in IV NORMAL SALINE 50ML 50 ML IV SCH ×3 (05:49→21:11)
[2017-06-14] MEDS: LEVOTHYROXINE 100 MCG TABLET PO SCH (05:49)
[2017-06-14] MEDS: CETIRIZINE HCL 10 MG TABLET. PO SCH (05:50)
[2017-06-14 05:58] LABS: CALCIUM 8.8 mg/dL (8.5-10.1); CREATININE 6.4 mg/dL (0.6-1.0); POTASSIUM 3.7 mmol/L (3.5-5.1)
[2017-06-14 06:00] LABS: HEMATOCRIT 24.3 % (36.0-47.0); HEMOGLOBIN 8.3 g/dL (12.0-15.5); RED BLOOD COUNT 2.68 x10^6/uL (3.50-5.40); RED CELL DISTRIBUTION WIDTH 16.6 % (11.5-14.5); WHITE BLOOD COUNT 4.7 x10^3/uL (4.0-11.0)
[2017-06-14] MEDS ORDERED: IV NORMAL SALINE 1000ML BAG 1,000 ML IV PRN ×2 (06:25)
[2017-06-14] MEDS ORDERED: DIALYSIS PATIENT. MC PRN (06:30)
[2017-06-14] MEDS: CALCIUM ACETATE 667 MG CAPSULE PO SCH ×3 (08:00→17:15)
--- NOTE | 2017-06-14 09:51 | PDOC ---
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 contamination 1. Febrile illness.?viral vs bacterial 2. History of previous cerebrovascular accident. 3. History of previous aortic dissection, had surgery. 4. End-stage renal disease on hemodialysis 3 times a week. 5. History of seizures. 6. Hypertension. 7. Hyperlipidemia. PLAN: positive blood c/s. labs ok waiting for ID recommendations,on IV antibiotics for now dialysis today. cxr-ve. At this time, was admitted to the hospital. Culture was done. Blood cultures, urine and sputum, started on broad-spectrum antibiotic vancomycin and Zosyn. ID was consulted. The patient had flu ruled out, was given hemodialysis last night, again tomorrow. Renal was consulted and see how the patient's condition improves. Problems: Plan Plan of Care Problems Medical Problems: (1) Acute respiratory failure Status: Acute (2) Aspiration into lower respiratory tract Status: Acute (3) Congestive heart failure Status: Acute Comment Review of Relevant I have reviewed the following items deni (where applicable) has been applied. Labs Laboratory Tests Test 06/14/17 05:00 White Blood Count 4.7 x10^3/uL (4.0-11.0) Red Blood Count 2.68 x10^6/uL (3.50-5.40) Hemoglobin 8.3 g/dL (12.0-15.5) Hematocrit 24.3 % (36.0-47.0) Mean Corpuscular Volume 91 fL (79-100) Mean Corpuscular Hemoglobin 31 pg (25-35) Mean Corpuscular Hemoglobin Concent 34 g/dL (31-37) Red Cell Distribution Width 16.6 % (11.5-14.5) Platelet Count 134 x10^3/uL (140-400) Sodium Level 143 mmol/L (136-145) Potassium Level 3.7 mmol/L (3.5-5.1) Chloride Level 102 mmol/L (98-107) Carbon Dioxide Level 34 mmol/L (21-32) Anion Gap 7 (6-14) Blood Urea Nitrogen 29 mg/dL (7-20) Creatinine 6.4 mg/dL (0.6-1.0) Estimated GFR (Cockcroft-Gault) 8.0 Glucose Level 104 mg/dL (70-99) Calcium Level 8.8 mg/dL (8.5-10.1) Random Vancomycin Level 23.5 mcg/mL Microbiology 06/12/17 Blood Culture - Preliminary, Resulted NO GROWTH AFTER 1 DAY Medications Current Medications Calcium Acetate (Phoslo) 667 mg TIDWMEALS PO Last administered on 06/13/17t 18 :07; Start 06/13/17 at 18:15 Darbepoetin Deion (Aranesp) 60 mcg WEEKLYHS SQ Last administered on 06/13/17t 21:22; Start 06/13/17 at 21:00 Info (PHARMACY MONITORING -- do not chart) 1 each PRN DAILY PRN MC SEE COMMENTS ; Start 06/14/17 at 06:30 Lacosamide (Vimpat) 50 mg 3X/WEEK PO ; Start 06/14/17 at 09:00 Levetiracetam (Keppra) 250 mg 3X/WEEK PO ; Start 06/14/17 at 09:00 Sodium Chloride 1,000 ml @ 400 mls/hr Q2H30M PRN IV PATENCY; Start 06/14/17 at 06:25; Stop 06/14/17 at 18:24 Sodium Chloride 1,000 ml @ 1,000 mls/hr Q1H PRN IV hypotension; Start at 06:25; Stop 06/14/17 at 12:24 Vancomycin HCl 1 each 1X ONCE MC Last administered on 06/14/17t 04:33; Start 06/14/17 at 05:00; Stop 06/14/17 at 05:01; Status DC Vitals/I & O Vital Sign - Last 24 Hours 06/13/17 06/13/17 06/13/17 06/13/17 10:00 11:00 12:00 12:00 Temp 98.8 98.8 Pulse 68 62 68 Resp 15 20 B/P (MAP) 156/72 (100) 140/57 (84) 113/47 (69) Pulse Ox 100 99 99 O2 Delivery Nasal Cannula Nasal Cannula Nasal Cannula Nasal Cannula O2 Flow Rate 2.0 2.0 2.0 2.0 06/13/17 06/13/17 06/13/17 06/13/17 12:03 13:00 14:00 15:00 Pulse 72 68 63 Resp 20 22 B/P (MAP) 140/56 (84) 120/61 (80) 116/54 (74) Pulse Ox 99 96 96 100 O2 Delivery Nasal Cannula Room Air Room Air Nasal Cannula O2 Flow Rate 1.0 2.0 06/13/17 06/13/17 06/13/17 06/13/17 15:40 16:00 16:00 17:00 Temp 98.9 99.1 98.9 99.1 Pulse 71 63 Resp 22 20 B/P (MAP) 111/59 (76) 142/60 (87) Pulse Ox 100 100 100 O2 Delivery Nasal Cannula Nasal Cannula Nasal Cannula Nasal Cannula O2 Flow Rate 2.0 2.0 2.0 2.0 06/13/17 06/13/17 06/13/17 06/13/17 18:00 19:30 19:30 19:45 Temp 98.9 98.9 Pulse 81 66 66 Resp 22 18 16 B/P (MAP) 129/67 (87) 147/63 (91) Pulse Ox 94 87 100 O2 Delivery Room Air Nasal Cannula Room Air Nasal Cannula O2 Flow Rate 2.0 2.0 06/13/17 06/14/17 23:00 03:00 Temp 98.5 98.3 98.5 98.3 Pulse 65 57 Resp 20 20 B/P (MAP) 134/67 (89) 136/57 (83) Pulse Ox 100 100 O2 Delivery Nasal Cannula Nasal Cannula O2 Flow Rate 2.0 2.0 LINA ANDERSON MD Jun 14, 2017 09:51
--- NOTE | 2017-06-14 10:22 | PDOC ---
Infectious Disease Note Subjective Subjective feeling good ROS ROS GEN: Denies fevers, chills, sweats HEENT: Denies blurred vision, sore throat CV: Denies chest pain RESP: Denies shortness of air, cough GI: Denies n/v/d NEURO: Denies confusion, dizziness MSK: Denies weakness, joint pain/swelling Vital Sign Vital Signs Vital Signs Date Time Temp Pulse Resp B/P (MAP) Pulse Ox O2 Delivery O2 Flow Rate FiO2 06/14/17 03:00 98.3 57 20 136/57 (83) 100 Nasal Cannula 2.0 98.3 Physical Exam PHYSICAL EXAM GENERAL: NAD, Alert HEENT: PERRL, OC/OP NECK: Supple, no JVD, no LN LUNGS: Clear HEART: S1S2, no gallop, no murmur ABD: Soft, NT, no organomegaly, no rebound EXT: No edema, no cyanosis REPEAT CHIEF: Alert, oriented x 3 ,limited ext movements SKIN: No rash IV: ok Labs Lab Laboratory Tests Test 06/14/17 05:00 White Blood Count 4.7 x10^3/uL (4.0-11.0) Red Blood Count 2.68 x10^6/uL (3.50-5.40) Hemoglobin 8.3 g/dL (12.0-15.5) Hematocrit 24.3 % (36.0-47.0) Mean Corpuscular Volume 91 fL (79-100) Mean Corpuscular Hemoglobin 31 pg (25-35) Mean Corpuscular Hemoglobin Concent 34 g/dL (31-37) Red Cell Distribution Width 16.6 % (11.5-14.5) Platelet Count 134 x10^3/uL (140-400) Sodium Level 143 mmol/L (136-145) Potassium Level 3.7 mmol/L (3.5-5.1) Chloride Level 102 mmol/L (98-107) Carbon Dioxide Level 34 mmol/L (21-32) Anion Gap 7 (6-14) Blood Urea Nitrogen 29 mg/dL (7-20) Creatinine 6.4 mg/dL (0.6-1.0) Estimated GFR (Cockcroft-Gault) 8.0 Glucose Level 104 mg/dL (70-99) Calcium Level 8.8 mg/dL (8.5-10.1) Random Vancomycin Level 23.5 mcg/mL Micro BC 1/6 G + cocci Objective Assessment Fever, ? viral ESRD SOB, chf Weakness BC 1/6 G + cocci, likely contaminant Plan Plan of Care vanc d/c zosyn check cultures supportive care MARSHA GOODMAN MD Jun 14, 2017 10:22
[2017-06-14 11:00] VITALS: BP 147/75
[2017-06-14] MEDS: POLYETHYLENE GLYCOL 3350 17 GM PACKET. PO SCH (11:16)
[2017-06-14] MEDS: CHOLECALCIFEROL (VITAMIN D3) 1,000 UNIT TABLET PO SCH (11:16)
[2017-06-14] MEDS: LACOSAMIDE 50 MG TABLET PO SCH ×3 (11:17→21:05)
[2017-06-14] MEDS: levETIRAcetam 250 MG TABLET PO SCH (11:18)
[2017-06-14] MEDS: levETIRAcetam 500 MG TABLET PO SCH ×2 (11:18→21:05)
[2017-06-14] MEDS: ASPIRIN ENTERIC COATED 81 MG TABLET.DR. PO SCH (11:19)
[2017-06-14] MEDS: PANTOPRAZOLE 40 MG TABLET.DR. PO SCH (11:19)
[2017-06-14] MEDS: CITALOPRAM 20 MG TABLET. PO SCH (11:19)
[2017-06-14] MEDS: ATORVASTATIN CALCIUM 10 MG TABLET. PO SCH (11:19)
[2017-06-14] MEDS: HEPARIN PF for SUB-Q USE 5,000 UNIT/0.5 ML VIAL. SQ SCH ×2 (11:21→21:00)
[2017-06-14] MEDS: HYDROcodone/APAP 5/325MG 1 TAB TABLET PO PRN ×2 (11:23→21:05)
--- NOTE | 2017-06-14 11:30 | PDOC ---
Renal-Progress Notes Subjective Notes Notes NO SOB History of Present Illness Hx of present illness STABLE Vitals Vitals Vital Signs Date Time Temp Pulse Resp B/P (MAP) Pulse Ox O2 Delivery O2 Flow Rate FiO2 06/14/17 11:23 20 Room Air 06/14/17 03:00 98.3 57 136/57 (83) 100 2.0 98.3 Weight Weight [ ] Labs Labs Laboratory Tests Test 06/14/17 05:00 White Blood Count 4.7 x10^3/uL (4.0-11.0) Red Blood Count 2.68 x10^6/uL (3.50-5.40) Hemoglobin 8.3 g/dL (12.0-15.5) Hematocrit 24.3 % (36.0-47.0) Mean Corpuscular Volume 91 fL (79-100) Mean Corpuscular Hemoglobin 31 pg (25-35) Mean Corpuscular Hemoglobin Concent 34 g/dL (31-37) Red Cell Distribution Width 16.6 % (11.5-14.5) Platelet Count 134 x10^3/uL (140-400) Sodium Level 143 mmol/L (136-145) Potassium Level 3.7 mmol/L (3.5-5.1) Chloride Level 102 mmol/L (98-107) Carbon Dioxide Level 34 mmol/L (21-32) Anion Gap 7 (6-14) Blood Urea Nitrogen 29 mg/dL (7-20) Creatinine 6.4 mg/dL (0.6-1.0) Estimated GFR (Cockcroft-Gault) 8.0 Glucose Level 104 mg/dL (70-99) Calcium Level 8.8 mg/dL (8.5-10.1) Random Vancomycin Level 23.5 mcg/mL Micro Micro Microbiology 06/12/17 Blood Culture - Preliminary, Resulted NO GROWTH AFTER 1 DAY Review of Systems Constitutional: yes: weakness, alert, oriented Ears/Nose/Throat: Yes: no symptom reported Eyes: Yes: no symptom reported Pulmonary: Yes no symptom reported Cardiovascular: Yes no symptom reported Gastrointestional: Yes: no symptom reported Genitourinary: Yes: no symptom reported Musculoskeletal: Yes: arm pain Skin: Yes no symptom reported Psychiatric/Neurological: Yes: no symptom reported Endocrine: Yes: no symptom reported Physical Exam General Appearance: no apparent distress Skin: warm Respiratory: bilateral CTA Heart: S1S2, RRR Abdomen: soft, bowel sounds present Extremities: atrophy Neurology: alert, oriented Assessment Assessment IMP CHF ANEMIA ESRD LEFT ARM MUSCULOSKELETAL PAIN PLAN HD TODAY UF TO DW SRAVAN LEWIS MD Jun 14, 2017 11:30
[2017-06-14] MEDS: VANCOMYCIN PER PHARMACY MC PRN (13:10)
[2017-06-14] MEDS ORDERED: VANCOMYCIN 500 MG in IV NORMAL SALINE 100ML 100 ML IV SCH (14:00)
[2017-06-14 15:00] VITALS: BP 138/69
[2017-06-14 19:00] VITALS: BP 123/54
[2017-06-14] MEDS: BACLOFEN 10 MG TABLET. PO SCH (21:06)
[2017-06-14 23:00] VITALS: BP 133/54
[2017-06-15 03:05] VITALS: BP 133/52
[2017-06-15] MEDS: CETIRIZINE HCL 10 MG TABLET. PO SCH (06:16)
[2017-06-15] MEDS: LEVOTHYROXINE 100 MCG TABLET PO SCH (06:16)
[2017-06-15] MEDS: PIPERACILLIN/TAZOBACTAM 2.25 GM in IV NORMAL SALINE 50ML 50 ML IV SCH ×2 (06:16→14:10)
[2017-06-15 07:00] VITALS: BP 156/71
[2017-06-15] MEDS: PANTOPRAZOLE 40 MG TABLET.DR. PO SCH (07:50)
[2017-06-15] MEDS: ATORVASTATIN CALCIUM 10 MG TABLET. PO SCH (08:44)
[2017-06-15] MEDS: CALCIUM ACETATE 667 MG CAPSULE PO SCH ×3 (08:44→17:32)
[2017-06-15] MEDS: ASPIRIN ENTERIC COATED 81 MG TABLET.DR. PO SCH (08:44)
[2017-06-15] MEDS: CHOLECALCIFEROL (VITAMIN D3) 1,000 UNIT TABLET PO SCH (08:44)
[2017-06-15] MEDS: LACOSAMIDE 50 MG TABLET PO SCH ×2 (08:44→21:32)
[2017-06-15] MEDS: CITALOPRAM 20 MG TABLET. PO SCH (08:44)
[2017-06-15] MEDS: HEPARIN PF for SUB-Q USE 5,000 UNIT/0.5 ML VIAL. SQ SCH ×2 (08:45→21:40)
[2017-06-15] MEDS: levETIRAcetam 500 MG TABLET PO SCH ×2 (08:45→21:31)
[2017-06-15] MEDS: POLYETHYLENE GLYCOL 3350 17 GM PACKET. PO SCH (08:45)
[2017-06-15 11:00] VITALS: BP 114/58
[2017-06-15] MEDS: HYDROcodone/APAP 5/325MG 1 TAB TABLET PO PRN (11:29)
--- NOTE | 2017-06-15 12:07 | PDOC ---
IM PROGRESS NOTES- Subjective Subjective None. Objective Vitals Vital Signs Date Time Temp Pulse Resp B/P (MAP) Pulse Ox O2 Delivery O2 Flow Rate FiO2 06/15/17 11:29 Room Air 06/15/17 11:00 98.1 64 20 114/58 (76) 98 98.1 06/14/17 15:00 2.0 Physical Exam Physical Exam alert,weak,i NAD lungs- clear cvs- s1s2 regular. abd- soft. 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,contractures- from previous cva Labs Laboratory Tests Test 06/14/17 05:00 White Blood Count 4.7 x10^3/uL (4.0-11.0) Red Blood Count 2.68 x10^6/uL (3.50-5.40) Hemoglobin 8.3 g/dL (12.0-15.5) Hematocrit 24.3 % (36.0-47.0) Mean Corpuscular Volume 91 fL (79-100) Mean Corpuscular Hemoglobin 31 pg (25-35) Mean Corpuscular Hemoglobin Concent 34 g/dL (31-37) Red Cell Distribution Width 16.6 % (11.5-14.5) Platelet Count 134 x10^3/uL (140-400) Sodium Level 143 mmol/L (136-145) Potassium Level 3.7 mmol/L (3.5-5.1) Chloride Level 102 mmol/L (98-107) Carbon Dioxide Level 34 mmol/L (21-32) Anion Gap 7 (6-14) Blood Urea Nitrogen 29 mg/dL (7-20) Creatinine 6.4 mg/dL (0.6-1.0) Estimated GFR (Cockcroft-Gault) 8.0 Glucose Level 104 mg/dL (70-99) Calcium Level 8.8 mg/dL (8.5-10.1) Random Vancomycin Level 23.5 mcg/mL Meds Current Medications Vancomycin HCl 500 mg/Sodium Chloride 100 ml @ 100 mls/hr QMWF IV Last administered on 06/14/17t 14:56; Start 06/14/17 at 14:00 Assessment Assessment Problems Medical Problems: (1) Acute respiratory failure Status: Acute (2) Aspiration into lower respiratory tract Status: Acute (3) Congestive heart failure Status: Acute FINAL IMPRESSION: * 1/6 positive bloos c/s, gram positive ? contamination 1. Febrile illness.?viral vs bacterial 2. History of previous cerebrovascular accident. 3. History of previous aortic dissection, had surgery. 4. End-stage renal disease on hemodialysis 3 times a week. 5. History of seizures. 6. Hypertension. 7. Hyperlipidemia. PLAN: positive blood c/s1/6 staph epidermidis- likely contaminant. Discharge today if ok with ID. Antibiotics per ID. see in 5 days. Discharge Management - 35 minutes. labs ok waiting for ID recommendations,on IV antibiotics for now dialysis today. cxr-ve. At this time, was admitted to the hospital. Culture was done. Blood cultures, urine and sputum, started on broad-spectrum antibiotic vancomycin and Zosyn. ID was consulted. ? HD today. Plan Plan For more details regarding further plans, please refer to the orders. YURI RODRIGUEZ MD Jun 15, 2017 12:07
--- NOTE | 2017-06-15 13:09 | PDOC ---
Infectious Disease Note Subjective Subjective c/o left-sided MS-type pain, needing to be reposition otherwise doing ok ROS ROS GEN: Denies fevers, chills, sweats CV: Denies chest pain RESP: Denies shortness of air, cough GI: Denies n/v/d Vital Sign Vital Signs Vital Signs Date Time Temp Pulse Resp B/P (MAP) Pulse Ox O2 Delivery O2 Flow Rate FiO2 06/15/17 11:29 Room Air 06/15/17 11:00 98.1 64 20 114/58 (76) 98 98.1 06/14/17 15:00 2.0 Physical Exam PHYSICAL EXAM GENERAL: Lying down, tired appearance, laert , NAD. 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 viral - better ESRD SOB, chf Weakness BC 1/6 G + cocci, likely contaminant, MRSE mild twitch - has h/o Plan Plan of Care Cont vanc D/c Zosyn BC at dialysis center prior to admission were reportedly positive also. Will try to contact center for a copy of results D/w RN I spoke with patient's dialysis center in [place], can't find report at this time I also called [facility]- no record of BC found. may have been sent to another lab. D/w Attending Co-Sign Attending Co-Sign The patient was seen and interviewed as well as examined at the bedside. The chart was reviewed. The case was discussed. Agree with the plan of care. BOBBY GOLDEN APRN Jun 15, 2017 13:09 MADISON OVALLES MD Jun 15, 2017 15:45
[2017-06-15 15:00] VITALS: BP 112/46
[2017-06-15] MEDS: ACETAMINOPHEN 325 MG TABLET. PO PRN (16:13)
[2017-06-15 19:00] VITALS: BP 120/61
[2017-06-15] MEDS: BACLOFEN 10 MG TABLET. PO SCH (21:31)
[2017-06-15 23:00] VITALS: BP 100/59
[2017-06-16 03:00] VITALS: BP 120/61
[2017-06-16] MEDS: CETIRIZINE HCL 10 MG TABLET. PO SCH (06:17)
[2017-06-16] MEDS: LEVOTHYROXINE 100 MCG TABLET PO SCH (06:17)
[2017-06-16 07:00] VITALS: BP 118/69
[2017-06-16] MEDS: CALCIUM ACETATE 667 MG CAPSULE PO SCH ×3 (07:57→17:24)
[2017-06-16] MEDS: PANTOPRAZOLE 40 MG TABLET.DR. PO SCH (07:57)
[2017-06-16] MEDS: POLYETHYLENE GLYCOL 3350 17 GM PACKET. PO SCH (09:09)
[2017-06-16] MEDS: LACOSAMIDE 50 MG TABLET PO SCH ×2 (09:10→20:04)
[2017-06-16] MEDS: levETIRAcetam 500 MG TABLET PO SCH ×2 (09:10→20:03)
[2017-06-16] MEDS: ATORVASTATIN CALCIUM 10 MG TABLET. PO SCH (09:10)
[2017-06-16] MEDS: CITALOPRAM 20 MG TABLET. PO SCH (09:10)
[2017-06-16] MEDS: ASPIRIN ENTERIC COATED 81 MG TABLET.DR. PO SCH (09:10)
[2017-06-16] MEDS: CHOLECALCIFEROL (VITAMIN D3) 1,000 UNIT TABLET PO SCH (09:10)
[2017-06-16] MEDS: HEPARIN PF for SUB-Q USE 5,000 UNIT/0.5 ML VIAL. SQ SCH ×2 (09:18→20:09)
[2017-06-16 11:00] VITALS: BP 117/63
--- NOTE | 2017-06-16 11:09 | PDOC ---
Infectious Disease Note Subjective Subjective "I feel good today." Left-sided MS-type pain better ROS ROS GEN: Denies fevers, chills, sweats CV: Denies chest pain RESP: Denies shortness of air, cough GI: Denies n/v/d Vital Sign Vital Signs Vital Signs Date Time Temp Pulse Resp B/P (MAP) Pulse Ox O2 Delivery O2 Flow Rate FiO2 06/16/17 07:00 97.7 55 18 118/69 (85) 98 Nasal Cannula 2.0 97.7 Physical Exam PHYSICAL EXAM GENERAL: Propped up in bed, smiling LUNGS: Clear HEART: S1S2, + murmur ABD: Soft, NT, BS active EXT: No edema, no cyanosis; LUE-AV unremarkable LAB ASST: Awake, oriented x 3 SKIN: No rash IV: ok Labs Micro BLOOD CULTURE Preliminary NO GROWTH AFTER 3 DAYS Objective Assessment Fever, ? viral - better ESRD SOB, chf Weakness BC 1/6 G + cocci, likely contaminant, MRSE mild twitch - has h/o Plan Plan of Care vancomycin await neuro eval Dr. Dr. Reardon D/w Attending Co-Sign Attending Co-Sign The patient was seen and interviewed as well as examined at the bedside. The chart was reviewed. The case was discussed. Agree with the plan of care. BOBBY GOLDEN APRN Jun 16, 2017 11:09 MADISON OVALLES MD Jun 16, 2017 14:33
[2017-06-16] MEDS: VANCOMYCIN PER PHARMACY MC PRN (11:28)
--- NOTE | 2017-06-16 11:29 | PDOC ---
IM PROGRESS NOTES- Subjective Subjective c/o twitching of the left shoulder and chest since Saturday. Objective Vitals Vital Signs Date Time Temp Pulse Resp B/P (MAP) Pulse Ox O2 Delivery O2 Flow Rate FiO2 06/16/17 11:00 97.9 51 20 117/63 (81) 98 Nasal Cannula 2.0 97.9 Physical Exam Physical Exam more alert,weak,in NAD lungs- clear CVS- s1s2 regular. 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 contamination 1. Febrile illness.?viral vs bacterial 2. History of previous cerebrovascular accident. 3. History of previous aortic dissection, had surgery. 4. End-stage renal disease on hemodialysis 3 times a week. 5. History of seizures. 6. Hypertension. 7. Hyperlipidemia. PLAN: positive blood c/s1/6 staph epidermidis- likely contaminant. D/w ID - awaiting blood c/s report from [facility]- apparently positive- done prior to this admission- on IV Vancomycin,off Zosyn. Twitching- / seizures- on Lacosamide,Keppra- consult . Decrease Lexapro to 10 mg daily. At this time, was admitted to the hospital. Culture was done. Blood cultures, urine and sputum, started on broad-spectrum antibiotic vancomycin and Zosyn. ID was consulted. ? HD today. Plan Plan For more details regarding further plans, please refer to the orders. YURI RODRIGUEZ MD Jun 16, 2017 11:29
--- NOTE | 2017-06-16 14:50 | PDOC2 ---
NEUROLOGY CONSULT Date of Admission Date of Admission DATE: 06/16/17 TIME: 14:42 Reason for Consult Reason for Consult: Metabolic encephalopathy. 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 ESRD on dialysis. Obesity. RECOMMENDATIONS/PLAN: Continue Keppra 1000 mg bid. Increase Vimpat to 150 mg bid. Treat medical diseases. EEG on 06/17/17. OT/PT Discussed with her at bedside on 06/16/17. HISTORY OF THE PRESENT ILLNESS: 62-y-old AA female patient with above medical diseases and seizures has been treated with Keppra and Vimpat. She has been having abnormal shaking or twitching movements in her left shoulder and UE about 3 times a week lasting for about 1-2 hours each per her . he said her such abnormal abnormal movements occurred after dialysis most time. PAST MEDICAL HISTORY: Renal failure on hemodialysis. Previous to that she was on peritoneal dialysis, total for 10 years. Aortic dissection, had a stroke, hypothyroidism, renal failure, hypertension and hyperlipidemia. PAST SURGICAL HISTORY: Peritoneal dialysis in the past, AV shunt now, thyroidectomy, aortic dissection repair in 2013. ALLERGIES: MORPHINE CAUSES NAUSEA AND VOMITING. PERSONAL HISTORY: Denied smoking, alcohol, or drug abuse. FAMILY HISTORY: Hypertension and kidney problems. SOCIAL HISTORY: Lives with her . ALLERGY: Reviewed. MEDICATIONS: Refer to MAR REVIEW OF SYSTEMS: Constitutional: No malnutrition, weight loss, cachexia. Head: No traumatic brain or head injury. Skin: No edema, or rash. Ear: No infection. Eyes: No vision loss or color blindness. Nose: No bleeding or purulent discharges. Hearing: No hearing decrease. Neck: No injury. Breast: No history of cancer, masses,or discharges. Cardiac: Aortic A dissection repair, HTN, HLD. Pulmonary: No COPD. GI: No GI ulcer, GI bleeding. Urinary/genital: UTI. Endocrinologic: Obesity. Skeletomuscular: Chronic left hemiplegia. Neurological: see HP. Psychiatric: Denies drug use/abuse. Otherwise, not [id number] review of systems. PHYSICAL EXAMINATION: General appearance is in subacute distress. HEENT: Normocephalic and nontraumatic. Eyes, nose, ears, and throat are unremarkable. Neck is supple. No lymphadenopathy. No crepitus. Cardiovascular: S1, S2, regular rate and rhythm. Pulmonary: Clear to auscultation bilaterally. Abdomen: Bowel sounds are positive. Extremities: No rash, lesions, or edema. No restriction of range of motion NEUROLOGICAL EXAMINATION: Awake. Oriented to place and person and partially to time. PERRL. EOMI. CN: Chronic left VII palsy. Muscle tone: Increased in left UE and LE. Muscle strength: 3- left UE, 4- left LE, 5 right side. DTR: 1-2 Plantar reflex: Neutral response bilaterally Gait: Unable to walk. Sensory exam: no acute abnormal findings. No acute cerebellar signs elicited. F-T-N test fine in right hand. Current Medications Current Medications Current Medications Albuterol/ Ipratropium (Duoneb) 3 ml 1X ONCE NEB Last administered on 17:15; Start 06/12/17 at 16:45; Stop 06/12/17 at 16:46; Status DC Piperacillin Sod/ Tazobactam Sod 3.375 gm/Sodium Chloride 50 ml @ 100 mls/hr 1X ONCE IV Last administered on 06/12/17 19:11; Start 06/12/17 at 19:15; Stop 06/12/17 at 19:44; Status DC Ondansetron HCl (Zofran) 4 mg PRN Q8HRS PRN IV NAUSEA/VOMITING; Start at 19:15; Stop 06/13/17 at 19:14; Status DC Albuterol/ Ipratropium (Duoneb) 3 ml RTQID NEB Last administered on 06/13/17 15:40; Start 06/12/17 at 20:00; Stop 06/13/17 at 19:59; Status DC Vancomycin HCl 1.5 gm/Sodium Chloride 500 ml @ 250 mls/hr 1X ONCE IV Last administered on 06/13/17 00:00; Start 06/12/17 at 20:45; Stop 06/12/17 at 22 :44; Status DC Vancomycin HCl (Vanco Per Pharmacy) 1 each PRN DAILY PRN MC SEE COMMENTS Last administered on 06/16/17 11:28; Start 06/12/17 at 20:30 Piperacillin Sod/ Tazobactam Sod 2.25 gm/Sodium Chloride 50 ml @ 100 mls/hr Q8HRS IV Last administered on 06/15/17 14:10; Start 06/13/17 at 06:00; Stop 06/15/17 at 15:42; Status DC Acetaminophen (Tylenol) 650 mg PRN Q8HRS PRN PEG MILD PAIN / TEMP Last administered on 06/12/17 21:01; Start 06/12/17 at 20:30; Stop 06/13/17 at 07 :21; Status DC Hydralazine HCl (Apresoline Inj) 10 mg PRN Q4HRS PRN IVP ELEVATED BP, SEE COMMENTS Last administered on 06/12/17 21:15; Start 06/12/17 at 20:30; Stop 06/13/17 at 00:28; Status DC Vancomycin HCl 1 each 1X ONCE MC Last administered on 06/14/17 04:33; Start 06/14/17 at 05:00; Stop 06/14/17 at 05:01; Status DC Aspirin (Ecotrin) 81 mg DAILY PO Last administered on 06/16/17 09:10; Start 06/13/17 at 09:00 Atorvastatin Calcium (Lipitor) 5 mg DAILY PO Last administered on 06/16/17 09 :10; Start 06/13/17 at 09:00 Baclofen (Lioresal) 5 mg HS PO Last administered on 06/15/17 21:31; Start at 21:00 Lacosamide (Vimpat) 50 mg 3X/WEEK PO Last administered on 06/14/17 11:17; Start 06/14/17 at 09:00 Levetiracetam (Keppra) 250 mg 3X/WEEK PO Last administered on 06/14/17 11:18 ; Start 06/14/17 at 09:00 Levothyroxine Sodium (Synthroid) 100 mcg DAILY07 PO Last administered on 06:17; Start 06/13/17 at 07:00 Pantoprazole Sodium (Protonix) 40 mg DAILYAC PO Last administered on 07:57; Start 06/13/17 at 07:30 Polyethylene Glycol (miraLAX PACKET) 17 gm DAILY PO Last administered on 09:09; Start 06/13/17 at 09:00 Calcium Acetate (Phoslo) 1,334 mg BIDACBL PO Last administered on 06/13/17 13 :06; Start 06/13/17 at 07:30; Stop 06/13/17 at 18:05; Status DC Citalopram Hydrobromide (CeleXA) 40 mg DAILY PO Last administered on 09:10; Start 06/13/17 at 09:00; Stop 06/16/17 at 11:31; Status DC Lacosamide (Vimpat) 100 mg BID PO Last administered on 06/16/17 09:10; Start 06/12/17 at 22:00 Levetiracetam (Keppra) 1,000 mg BID PO Last administered on 06/16/17 09:10; Start 06/12/17 at 22:00 Cetirizine HCl (ZyrTEC) 10 mg DAILY07 PO Last administered on 06/16/17 06:17 ; Start 06/13/17 at 07:45 Vitamin D (Vitamin D3) 1,000 unit DAILY PO Last administered on 06/16/17 09: 10; Start 06/13/17 at 09:00 Lactulose 20 gm PRN DAILY PRN PO CONSTIPATION; Start 06/12/17 at 20:45 Heparin Sodium (Porcine) (Heparin Sq) 5,000 unit Q12HR SQ Last administered on 06/16/17 09:18; Start 06/13/17 at 09:00 Sodium Chloride 1,000 ml @ 400 mls/hr Q2H30M PRN IV PATENCY; Start 06/12/17 at 22:31; Stop 06/13/17 at 10:30; Status DC Info (PHARMACY MONITORING -- do not chart) 1 each PRN DAILY PRN MC SEE COMMENTS ; Start 06/12/17 at 22:45 Hydralazine HCl (Apresoline Inj) 10 mg PRN Q3HRS PRN IVP ELEVATED BP, SEE COMMENTS Last administered on 06/13/17 00:37; Start 06/13/17 at 00:30 Acetaminophen/ Hydrocodone Bitart (Lortab 5/325) 1 tab PRN Q6HRS PRN PO MODERATE PAIN Last administered on 06/15/17 11:29; Start 06/13/17 at 00:30 Acetaminophen (Tylenol) 650 mg PRN Q8HRS PRN PO FEVER Last administered on 16:13; Start 06/13/17 at 07:30 Darbepoetin Deion (Aranesp) 60 mcg WEEKLYHS SQ Last administered on 06/13/17 21:22; Start 06/13/17 at 21:00 Calcium Acetate (Phoslo) 667 mg TIDWMEALS PO Last administered on 06/16/17 11 :45; Start 06/13/17 at 18:15 Sodium Chloride 1,000 ml @ 1,000 mls/hr Q1H PRN IV hypotension; Start at 06:25; Stop 06/14/17 at 12:24; Status DC Sodium Chloride 1,000 ml @ 400 mls/hr Q2H30M PRN IV PATENCY; Start 06/14/17 at 06:25; Stop 06/14/17 at 18:24; Status DC Info (PHARMACY MONITORING -- do not chart) 1 each PRN DAILY PRN MC SEE COMMENTS ; Start 06/14/17 at 06:30; Status Cancel Vancomycin HCl 500 mg/Sodium Chloride 100 ml @ 100 mls/hr QMWF IV Last administered on 06/14/17 14:56; Start 06/14/17 at 14:00 Citalopram Hydrobromide (CeleXA) 20 mg DAILY PO ; Start 06/17/17 at 09:00 Active Scripts Active Reported Generlac (Lactulose) 10 Gm/15 Ml Solution 20 Gm PO Lexapro (Escitalopram Oxalate) 20 Mg Tablet 0.5 Tab PO DAILY Polyethylene Glycol 3350 255 Gm Powder 17 Gm PO DAILY Levothyroxine Sodium 100 Mcg Tablet 1 Tab PO DAILY Levetiracetam 500 Mg Tablet 250 Mg PO 3X/WEEK Keppra (Levetiracetam) 1,000 Mg Tablet 1,000 Mg PO BID Vimpat (Lacosamide) 100 Mg Tablet 100 Mg PO BID Vimpat (Lacosamide) 50 Mg Tablet 50 Mg PO 3X/WEEK Take after Dialysis Baclofen 10 Mg Tablet 5 Mg PO HS Atorvastatin Calcium 10 Mg Tablet 5 Mg PO DAILY Calcium Acetate 667 Mg Tablet 667 Mg PO TIDWMEALS Vitamin D3 (Cholecalciferol (Vitamin D3)) 1,000 Unit Capsule 1,000 Unit PO Loratadine 10 Mg Tablet 1 Tab PO DAILY Aspirin Ec (Aspirin) 81 Mg Tablet.dr 1 Tab PO DAILY Pantoprazole Sodium 40 Mg Tablet.dr 40 Mg PO DAILY Allergies Allergies: Coded Allergies: morphine (Verified Allergy, Intermediate, 05/04/14) Vitals VITALS Vital Signs Date Time Temp Pulse Resp B/P (MAP) Pulse Ox O2 Delivery O2 Flow Rate FiO2 06/16/17 11:00 97.9 51 20 117/63 (81) 98 Nasal Cannula 2.0 97.9 FRANKLIN LEON MD Jun 16, 2017 14:50
[2017-06-16 15:00] VITALS: BP 125/61
[2017-06-16 19:00] VITALS: BP 135/65
[2017-06-16] MEDS: HYDROcodone/APAP 5/325MG 1 TAB TABLET PO PRN (19:23)
[2017-06-16] MEDS: BACLOFEN 10 MG TABLET. PO SCH (20:03)
[2017-06-16 23:00] VITALS: BP 118/65
[2017-06-17] MEDS ORDERED: HYDROcodone/APAP 5/325MG 1 TAB TABLET PO ONE (00:15)
[2017-06-17] MEDS ORDERED: ALPRAZolam 0.25 MG TABLET PO ONE ×2 (01:30)
[2017-06-17 03:00] VITALS: BP 126/52
[2017-06-17 07:00] VITALS: BP 123/48
--- NOTE | 2017-06-17 08:30 | PDOC ---
SUBJECTIVE ROS ESRD Doing and feeling better today CVS: no Orthopnea, no CP RESP: no SOB, no LEÓN GI: no Nausea, no Vomiting : no Dysuria, no Urgency OBJECTIVE Vital Signs Vital Signs Date Time Temp Pulse Resp B/P (MAP) Pulse Ox O2 Delivery O2 Flow Rate FiO2 06/17/17 07:00 96.5 52 20 123/48 (73) 96 Room Air 96.5 06/16/17 20:36 2.0 PHYSICAL EXAM Physical Exam GEN: Awake, Oriented x 2-3 , In no distress; Ch Left hemiparesis EYES: Vision Unchanged, Conjunctiva Normal; Deviated gaze to the Rt EN: No EN Drainage, Mucous Membranes moist NECK: no JVD, min JVP, Supple, no Thyromegaly CVS: S1S2, soft Murmur, No Gallop, No Rub,no Edema RESP: no Rales, no Rhonchi,no Acc. Muscle Use GI: BS + ve, NO Bruit, Non Tender, Non Distended : no CVA tenderness, no Suprapubic Tenderness DIAGNOSIS/ASSESSMENT Assessment & Plan ESRD : Dialysis as below F 180 NR 3.5 Hrs 3 K 2.5 Ca 140 Na 35 HC03 Qb 350 + Qd 500+ Heparin 0 Units Uf 2-3 Kgs for a new dry weight as tolerated May give 25-50 gms of 25% Albumin if needed to maintain Hemodynamic stability Treatment plan reviewed and discussed with industrial relations specialist ANEMIA; Aranap as ordered, Transfuse with next HD as needed Bacteremia + Fever - MSSE as OP but MRSE here so after D/w ID - will ct with iv Vanc as ordered HTN: Current BP meds as reviewed. See orders for changes. BONE & MINERAL: follow phos and alter binder regimen as needed Discussed Plan of Care with family () at bedside Problems: COMMENT/RELEVANT DATA Meds Current Medications Medications (Trade) Dose Ordered Sig/Filippo Start Time Stop Time Status Last Admin Dose Admin Acetaminophen (Tylenol) 650 mg PRN Q8HRS PRN 06/13/17 07:30 06/15/17 16:13 650 MG Acetaminophen/ Hydrocodone Bitart (Lortab 5/325) 1 tab 1X ONCE 06/17/17 00:15 06/17/17 00:16 DC 06/16/17 23:52 1 TAB Albuterol/ Ipratropium (Duoneb) 3 ml RTQID 06/12/17 20:00 06/13/17 19:59 DC 06/13/17 15:40 3 ML Alprazolam (Xanax) 0.25 mg 1X ONCE 06/17/17 01:30 06/17/17 01:31 UNV Aspirin (Ecotrin) 81 mg DAILY 06/13/17 09:00 06/16/17 09:10 81 MG Atorvastatin Calcium (Lipitor) 5 mg DAILY 06/13/17 09:00 06/16/17 09:10 5 MG Baclofen (Lioresal) 5 mg HS 06/12/17 21:00 06/16/17 20:03 5 MG Calcium Acetate (Phoslo) 667 mg TIDWMEALS 06/13/17 18:15 06/16/17 17:24 667 MG Cetirizine HCl (ZyrTEC) 10 mg DAILY07 06/13/17 07:45 06/16/17 06:17 10 MG Citalopram Hydrobromide (CeleXA) 20 mg DAILY 06/17/17 09:00 Darbepoetin Deion (Aranesp) 60 mcg WEEKLYHS 06/13/17 21:00 06/13/17 21:22 60 MCG Heparin Sodium (Porcine) (Heparin Sq) 5,000 unit Q12HR 06/13/17 09:00 06/16/17 20:09 5,000 UNIT Hydralazine HCl (Apresoline Inj) 10 mg PRN Q3HRS PRN 06/13/17 00:30 06/13/17 00:37 10 MG Info (PHARMACY MONITORING -- do not chart) 1 each PRN DAILY PRN 06/14/17 06:30 Cancel Lacosamide (Vimpat) 150 mg BID 06/16/17 21:00 06/16/17 20:04 150 MG Lactulose 20 gm PRN DAILY PRN 06/12/17 20:45 Levetiracetam (Keppra) 1,000 mg BID 06/12/17 22:00 06/16/17 20:03 1,000 MG Levothyroxine Sodium (Synthroid) 100 mcg DAILY07 06/13/17 07:00 06/16/17 06:17 100 MCG Ondansetron HCl (Zofran) 4 mg PRN Q8HRS PRN 06/12/17 19:15 06/13/17 19:14 DC Pantoprazole Sodium (Protonix) 40 mg DAILYAC 06/13/17 07:30 06/16/17 07:57 40 MG Piperacillin Sod/ Tazobactam Sod 2.25 gm/Sodium Chloride 50 ml @ 100 mls/hr Q8HRS 06/13/17 06:00 06/15/17 15:42 DC 06/15/17 14:10 100 MLS/HR Piperacillin Sod/ Tazobactam Sod 3.375 gm/Sodium Chloride 50 ml @ 100 mls/hr 1X ONCE 06/12/17 19:15 06/12/17 19:44 DC 06/12/17 19:11 100 MLS/HR Polyethylene Glycol (miraLAX PACKET) 17 gm DAILY 06/13/17 09:00 06/16/17 09:09 17 GM Sodium Chloride 1,000 ml @ 400 mls/hr Q2H30M PRN 06/14/17 06:25 06/14/17 18:24 DC Vancomycin HCl (Vanco Per Pharmacy) 1 each PRN DAILY PRN 06/12/17 20:30 06/16/17 11:28 1 EACH Vancomycin HCl 1.5 gm/Sodium Chloride 500 ml @ 250 mls/hr 1X ONCE 06/12/17 20:45 06/12/17 22:44 DC 06/13/17 00:00 250 MLS/HR Vancomycin HCl 500 mg/Sodium Chloride 100 ml @ 100 mls/hr QMWF 06/14/17 14:00 06/14/17 14:56 100 MLS/HR Vitamin D (Vitamin D3) 1,000 unit DAILY 06/13/17 09:00 06/16/17 09:10 1,000 UNIT ALEJANDRO GOODMAN MD Jun 17, 2017 08:30
[2017-06-17] MEDS: LEVOTHYROXINE 100 MCG TABLET PO SCH (08:32)
[2017-06-17] MEDS: CETIRIZINE HCL 10 MG TABLET. PO SCH (08:32)
[2017-06-17] MEDS: PANTOPRAZOLE 40 MG TABLET.DR. PO SCH (08:33)
[2017-06-17] MEDS: CALCIUM ACETATE 667 MG CAPSULE PO SCH ×3 (08:33→17:42)
[2017-06-17] MEDS: CITALOPRAM 20 MG TABLET. PO SCH (08:34)
[2017-06-17] MEDS: levETIRAcetam 250 MG TABLET PO SCH (08:35)
[2017-06-17] MEDS: ASPIRIN ENTERIC COATED 81 MG TABLET.DR. PO SCH (08:35)
[2017-06-17] MEDS: levETIRAcetam 500 MG TABLET PO SCH ×2 (08:36→21:25)
[2017-06-17] MEDS: LACOSAMIDE 50 MG TABLET PO SCH ×3 (08:37→21:25)
[2017-06-17] MEDS: ATORVASTATIN CALCIUM 10 MG TABLET. PO SCH (08:37)
[2017-06-17] MEDS: CHOLECALCIFEROL (VITAMIN D3) 1,000 UNIT TABLET PO SCH (08:37)
[2017-06-17] MEDS: POLYETHYLENE GLYCOL 3350 17 GM PACKET. PO SCH (08:37)
[2017-06-17] MEDS: HYDROcodone/APAP 5/325MG 1 TAB TABLET PO PRN (08:40)
[2017-06-17] MEDS: HEPARIN PF for SUB-Q USE 5,000 UNIT/0.5 ML VIAL. SQ SCH (09:00)
--- NOTE | 2017-06-17 09:39 | PDOC ---
Infectious Disease Note Subjective Subjective Choking initially but cleared throat and better Doing ok ROS ROS GEN: Denies fevers, chills, sweats HEENT: Denies blurred vision, sore throat CV: Denies chest pain RESP: Denies shortness of air, cough GI: Denies n/v/d NEURO: Denies confusion, dizziness MSK: Denies weakness, joint pain/swelling Vital Sign Vital Signs Vital Signs Date Time Temp Pulse Resp B/P (MAP) Pulse Ox O2 Delivery O2 Flow Rate FiO2 06/17/17 08:40 20 96 Room Air 06/17/17 07:00 96.5 52 123/48 (73) 96.5 06/16/17 20:36 2.0 Physical Exam PHYSICAL EXAM GENERAL: Propped up in bed, smiling Oc/Op -clear LUNGS: Clear HEART: S1S2, + murmur ABD: Soft, NT, BS active EXT: No edema, no cyanosis; LUE-AV unremarkable 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 Drop of blood RUE from heparin shot. clean IV: ok, Objective Assessment Fever, ? viral - better ESRD SOB, chf Weakness BC 1/6 G + cocci, likely contaminant, MRSE. Conteh with one anerobic bottle also but MSSE mild twitch - has h/o - better Plan Plan of Care vancomycin for 3 more doses including todays Hope to d/c home 06/[address] Tin Mosqueda, Dr. Lira D/w MADISON OVALLES MD Jun 17, 2017 09:39
--- NOTE | 2017-06-17 10:16 | PDOC ---
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 contamination 1. Febrile illness.?viral vs bacterial 2. History of previous cerebrovascular accident. 3. History of previous aortic dissection, had surgery. 4. End-stage renal disease on hemodialysis 3 times a week. 5. History of seizures. 6. Hypertension. 7. Hyperlipidemia. PLAN: spoke with ID and renal vanco dose today with dialysis. plans to d/c home tomorrow. positive blood c/s1/6 staph epidermidis- likely contaminant. D/w ID - awaiting blood c/s report from [facility]- apparently positive- done prior to this admission- on IV Vancomycin,off Zosyn. Twitching- / seizures- on Lacosamide,Keppra- consult . Decrease Lexapro to 10 mg daily. d/c aq heparin due to oozing blood from injection site Problems: Plan Plan of Care Problems Medical Problems: (1) Acute respiratory failure Status: Acute (2) Aspiration into lower respiratory tract Status: Acute (3) Congestive heart failure Status: Acute Comment Review of Relevant I have reviewed the following items deni (where applicable) has been applied. Labs Microbiology 06/12/17 Blood Culture - Preliminary, Resulted NO GROWTH AFTER 4 DAYS Medications Current Medications Acetaminophen/ Hydrocodone Bitart (Lortab 5/325) 1 tab 1X ONCE PO Last administered on 06/16/17 23:52; Start 06/17/17 at 00:15; Stop 06/17/17 at 00 :16; Status DC Alprazolam (Xanax) 0.25 mg 1X ONCE PO Last administered on 06/16/17 23:51; Start 06/17/17 at 00:00; Stop 06/17/17 at 00:01; Status DC Alprazolam (Xanax) 0.25 mg 1X ONCE PO ; Start 06/17/17 at 01:30; Stop at 01:31; Status UNV Citalopram Hydrobromide (CeleXA) 20 mg DAILY PO Last administered on 08:34; Start 06/17/17 at 09:00 Lacosamide (Vimpat) 150 mg BID PO Last administered on 06/17/17 09:51; Start 06/16/17 at 21:00 Vitals/I & O Vital Sign - Last 24 Hours 06/16/17 06/16/17 06/16/17 06/16/17 11:00 15:00 19:00 19:23 Temp 97.9 97.6 97.6 97.9 97.6 97.6 Pulse 51 53 50 Resp 20 20 20 20 B/P (MAP) 117/63 (81) 125/61 (82) 135/65 (88) Pulse Ox 98 90 100 O2 Delivery Nasal Cannula Nasal Cannula Nasal Cannula Nasal Cannula O2 Flow Rate 2.0 2.0 2.0 2.0 06/16/17 06/16/17 06/16/17 06/16/17 19:23 20:36 23:00 23:52 Temp 97.6 97.6 Pulse 62 Resp 20 20 B/P (MAP) 118/65 (82) Pulse Ox 98 O2 Delivery Nasal Cannula Room Air Room Air O2 Flow Rate 2.0 2.0 06/17/17 06/17/17 06/17/17 06/17/17 00:55 03:00 07:00 08:40 Temp 96.7 96.5 96.7 96.5 Pulse 55 52 Resp 20 22 20 20 B/P (MAP) 126/52 (76) 123/48 (73) Pulse Ox 96 96 96 O2 Delivery Room Air Room Air Room Air Room Air 06/17/17 09:40 Resp 20 Pulse Ox 96 O2 Delivery Room Air LINA ANDERSON MD Jun 17, 2017 10:15
[2017-06-17 10:27] VITALS: BP 136/48
--- NOTE | 2017-06-17 11:25 | PDOC ---
PROGRESS NOTES Assessment Problems Medical Problems: (1) Acute respiratory failure Status: Acute (2) Aspiration into lower respiratory tract Status: Acute (3) Congestive heart failure Status: Acute Metabolic encephalopathy. 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 Obesity. Plan Continue Keppra 1000 mg bid. Increase Vimpat to 150 mg bid. Treat medical diseases. Await EEG OT/PT Subjective No complaints Objective Vital Signs Date Time Temp Pulse Resp B/P (MAP) Pulse Ox O2 Delivery O2 Flow Rate FiO2 06/17/17 10:27 96.9 51 18 136/48 (77) 96 Room Air 96.9 06/16/17 20:36 2.0 PHYSICAL EXAM Alert. Oriented to time, place and person. PERRL. EOMI. CN: Left central facial weakness, otherwise no focal findings. Muscle tone: increased on left Muscle strength: 3/5 left arm, 4/5 left leg, 5/5 on right DTR: 1-2+ Plantar reflex: flexor Gait: not examined in bed. Sensory exam: no abnormal findings. No cerebellar signs elicited. Review of Relevant I have reviewed the following items deni (where applicable) has been applied. Labs Microbiology 06/12/17 Blood Culture - Preliminary, Resulted NO GROWTH AFTER 4 DAYS Medications Current Medications Albuterol/ Ipratropium (Duoneb) 3 ml 1X ONCE NEB Last administered on 17:15; Start 06/12/17 at 16:45; Stop 06/12/17 at 16:46; Status DC Piperacillin Sod/ Tazobactam Sod 3.375 gm/Sodium Chloride 50 ml @ 100 mls/hr 1X ONCE IV Last administered on 06/12/17 19:11; Start 06/12/17 at 19:15; Stop 06/12/17 at 19:44; Status DC Ondansetron HCl (Zofran) 4 mg PRN Q8HRS PRN IV NAUSEA/VOMITING; Start at 19:15; Stop 06/13/17 at 19:14; Status DC Albuterol/ Ipratropium (Duoneb) 3 ml RTQID NEB Last administered on 06/13/17 15:40; Start 06/12/17 at 20:00; Stop 06/13/17 at 19:59; Status DC Vancomycin HCl 1.5 gm/Sodium Chloride 500 ml @ 250 mls/hr 1X ONCE IV Last administered on 06/13/17 00:00; Start 06/12/17 at 20:45; Stop 06/12/17 at 22 :44; Status DC Vancomycin HCl (Vanco Per Pharmacy) 1 each PRN DAILY PRN MC SEE COMMENTS Last administered on 06/16/17 11:28; Start 06/12/17 at 20:30 Piperacillin Sod/ Tazobactam Sod 2.25 gm/Sodium Chloride 50 ml @ 100 mls/hr Q8HRS IV Last administered on 06/15/17 14:10; Start 06/13/17 at 06:00; Stop 06/15/17 at 15:42; Status DC Acetaminophen (Tylenol) 650 mg PRN Q8HRS PRN PEG MILD PAIN / TEMP Last administered on 06/12/17 21:01; Start 06/12/17 at 20:30; Stop 06/13/17 at 07 :21; Status DC Hydralazine HCl (Apresoline Inj) 10 mg PRN Q4HRS PRN IVP ELEVATED BP, SEE COMMENTS Last administered on 06/12/17 21:15; Start 06/12/17 at 20:30; Stop 06/13/17 at 00:28; Status DC Vancomycin HCl 1 each 1X ONCE MC Last administered on 06/14/17 04:33; Start 06/14/17 at 05:00; Stop 06/14/17 at 05:01; Status DC Aspirin (Ecotrin) 81 mg DAILY PO Last administered on 06/17/17 08:35; Start 06/13/17 at 09:00 Atorvastatin Calcium (Lipitor) 5 mg DAILY PO Last administered on 06/17/17 08 :37; Start 06/13/17 at 09:00 Baclofen (Lioresal) 5 mg HS PO Last administered on 06/16/17 20:03; Start at 21:00 Lacosamide (Vimpat) 50 mg 3X/WEEK PO Last administered on 06/17/17 08:37; Start 06/14/17 at 09:00 Levetiracetam (Keppra) 250 mg 3X/WEEK PO Last administered on 06/17/17 08:35 ; Start 06/14/17 at 09:00 Levothyroxine Sodium (Synthroid) 100 mcg DAILY07 PO Last administered on 08:32; Start 06/13/17 at 07:00 Pantoprazole Sodium (Protonix) 40 mg DAILYAC PO Last administered on 08:33; Start 06/13/17 at 07:30 Polyethylene Glycol (miraLAX PACKET) 17 gm DAILY PO Last administered on 08:37; Start 06/13/17 at 09:00 Calcium Acetate (Phoslo) 1,334 mg BIDACBL PO Last administered on 06/13/17 13 :06; Start 06/13/17 at 07:30; Stop 06/13/17 at 18:05; Status DC Citalopram Hydrobromide (CeleXA) 40 mg DAILY PO Last administered on 09:10; Start 06/13/17 at 09:00; Stop 06/16/17 at 11:31; Status DC Lacosamide (Vimpat) 100 mg BID PO Last administered on 06/16/17 09:10; Start 06/12/17 at 22:00; Stop 06/16/17 at 14:51; Status DC Levetiracetam (Keppra) 1,000 mg BID PO Last administered on 06/17/17 08:36; Start 06/12/17 at 22:00 Cetirizine HCl (ZyrTEC) 10 mg DAILY07 PO Last administered on 06/17/17 08:32 ; Start 06/13/17 at 07:45 Vitamin D (Vitamin D3) 1,000 unit DAILY PO Last administered on 06/17/17 08: 37; Start 06/13/17 at 09:00 Lactulose 20 gm PRN DAILY PRN PO CONSTIPATION; Start 06/12/17 at 20:45 Heparin Sodium (Porcine) (Heparin Sq) 5,000 unit Q12HR SQ Last administered on 06/17/17 09:00; Start 06/13/17 at 09:00; Stop 06/17/17 at 10:13; Status DC Sodium Chloride 1,000 ml @ 400 mls/hr Q2H30M PRN IV PATENCY; Start 06/12/17 at 22:31; Stop 06/13/17 at 10:30; Status DC Info (PHARMACY MONITORING -- do not chart) 1 each PRN DAILY PRN MC SEE COMMENTS ; Start 06/12/17 at 22:45 Hydralazine HCl (Apresoline Inj) 10 mg PRN Q3HRS PRN IVP ELEVATED BP, SEE COMMENTS Last administered on 06/13/17 00:37; Start 06/13/17 at 00:30 Acetaminophen/ Hydrocodone Bitart (Lortab 5/325) 1 tab PRN Q6HRS PRN PO MODERATE PAIN Last administered on 06/17/17 08:40; Start 06/13/17 at 00:30 Acetaminophen (Tylenol) 650 mg PRN Q8HRS PRN PO FEVER Last administered on 16:13; Start 06/13/17 at 07:30 Darbepoetin Deion (Aranesp) 60 mcg WEEKLYHS SQ Last administered on 06/13/17 21:22; Start 06/13/17 at 21:00 Calcium Acetate (Phoslo) 667 mg TIDWMEALS PO Last administered on 06/17/17 08 :33; Start 06/13/17 at 18:15 Sodium Chloride 1,000 ml @ 1,000 mls/hr Q1H PRN IV hypotension; Start at 06:25; Stop 06/14/17 at 12:24; Status DC Sodium Chloride 1,000 ml @ 400 mls/hr Q2H30M PRN IV PATENCY; Start 06/14/17 at 06:25; Stop 06/14/17 at 18:24; Status DC Info (PHARMACY MONITORING -- do not chart) 1 each PRN DAILY PRN MC SEE COMMENTS ; Start 06/14/17 at 06:30; Status Cancel Vancomycin HCl 500 mg/Sodium Chloride 100 ml @ 100 mls/hr QMWF IV Last administered on 06/14/17 14:56; Start 06/14/17 at 14:00 Citalopram Hydrobromide (CeleXA) 20 mg DAILY PO Last administered on 08:34; Start 06/17/17 at 09:00 Lacosamide (Vimpat) 150 mg BID PO Last administered on 06/17/17 09:51; Start 06/16/17 at 21:00 Acetaminophen/ Hydrocodone Bitart (Lortab 5/325) 1 tab 1X ONCE PO Last administered on 06/16/17 23:52; Start 06/17/17 at 00:15; Stop 06/17/17 at 00 :16; Status DC Alprazolam (Xanax) 0.25 mg 1X ONCE PO Last administered on 06/16/17 23:51; Start 06/17/17 at 00:00; Stop 06/17/17 at 00:01; Status DC Alprazolam (Xanax) 0.25 mg 1X ONCE PO ; Start 06/17/17 at 01:30; Stop at 01:31; Status UNV Active Scripts Active Reported Generlac (Lactulose) 10 Gm/15 Ml Solution 20 Gm PO Lexapro (Escitalopram Oxalate) 20 Mg Tablet 0.5 Tab PO DAILY Polyethylene Glycol 3350 255 Gm Powder 17 Gm PO DAILY Levothyroxine Sodium 100 Mcg Tablet 1 Tab PO DAILY Levetiracetam 500 Mg Tablet 250 Mg PO 3X/WEEK Keppra (Levetiracetam) 1,000 Mg Tablet 1,000 Mg PO BID Vimpat (Lacosamide) 100 Mg Tablet 100 Mg PO BID Vimpat (Lacosamide) 50 Mg Tablet 50 Mg PO 3X/WEEK Take after Dialysis Baclofen 10 Mg Tablet 5 Mg PO HS Atorvastatin Calcium 10 Mg Tablet 5 Mg PO DAILY Calcium Acetate 667 Mg Tablet 667 Mg PO TIDWMEALS Vitamin D3 (Cholecalciferol (Vitamin D3)) 1,000 Unit Capsule 1,000 Unit PO Loratadine 10 Mg Tablet 1 Tab PO DAILY Aspirin Ec (Aspirin) 81 Mg Tablet. 1 Tab PO DAILY Pantoprazole Sodium 40 Mg Tablet.dr 40 Mg PO DAILY Vitals/I & O Vital Sign - Last 24 Hours 06/16/17 06/16/17 06/16/17 06/16/17 15:00 19:00 19:23 19:23 Temp 97.6 97.6 97.6 97.6 Pulse 53 50 Resp 20 20 20 B/P (MAP) 125/61 (82) 135/65 (88) Pulse Ox 90 100 O2 Delivery Nasal Cannula Nasal Cannula Nasal Cannula Nasal Cannula O2 Flow Rate 2.0 2.0 2.0 2.0 06/16/17 06/16/17 06/16/17 06/17/17 20:36 23:00 23:52 00:55 Temp 97.6 97.6 Pulse 62 Resp 20 20 20 B/P (MAP) 118/65 (82) Pulse Ox 98 O2 Delivery Room Air Room Air Room Air O2 Flow Rate 2.0 06/17/17 06/17/17 06/17/17 06/17/17 03:00 07:00 08:00 08:40 Temp 96.7 96.5 96.7 96.5 Pulse 55 52 Resp 22 20 20 B/P (MAP) 126/52 (76) 123/48 (73) Pulse Ox 96 96 96 O2 Delivery Room Air Room Air Room Air Room Air 06/17/17 06/17/17 09:40 10:27 Temp 96.9 96.9 Pulse 51 Resp 20 18 B/P (MAP) 136/48 (77) Pulse Ox 96 96 O2 Delivery Room Air Room Air Images Brain MRI 02/28/17: Findings: Comparison study is dated 02/20/2017. There is generalized parenchymal atrophy. Patchy and a few small scattered areas of increased signal intensity are seen within the periventricular and subcortical white matter of both cerebral hemispheres on the FLAIR and T2-weighted images consistent with areas of small vessel ischemic disease. Areas of encephalomalacia are seen involving the right parietal lobe and the left superior cerebellum, unchanged. On the gradient echo images small rounded areas of decreased signal intensity are seen involving the right frontal lobe and the left parietal lobe which likely represent cavernous angiomas. These are unchanged. There is no surrounding edema or associated mass effect. No acute parenchymal abnormality is seen. No extra-axial fluid collection is seen. There is no MRI evidence of acute ischemia/infarction. The paranasal sinuses are essentially clear. There are small bilateral mastoid effusions. Normal flow voids are seen within the major vascular structures surrounding the brain parenchyma. Impression: No acute parenchymal abnormality is seen. MAIRA ASHLEY MD Jun 17, 2017 11:25
[2017-06-17] MEDS: VANCOMYCIN PER PHARMACY MC PRN (12:58)
[2017-06-17 15:00] VITALS: BP 135/44
[2017-06-17 15:23] LABS: CREATININE 9.1 mg/dL (0.6-1.0); GFR 5.3; POTASSIUM 3.9 mmol/L (3.5-5.1)
--- NOTE | 2017-06-17 15:43 | EEG ---
DATE OF SERVICE: 06/17/2017 EEG NUMBER [id number] performed on 06/17/2017. OBJECTIVE: The patient is a 62-year-old female with known seizures and also a known history of right hemispheric stroke. DESCRIPTION: This is a digital study. Electrodes are placed according to the international 10-20 system. Bipolar and referential montages are available. Activation procedures typically include hyperventilation and intermittent photic stimulation. INTERPRETATION: The waking background consists of 6-7 Hz, 50-100 microvolt activity with slowing over the right sided leads. Stage I sleep is achieved with normal electroencephalogram patterns. The patient had poor effort with hyperventilation. Intermittent photic stimulation is noncontributory. IMPRESSION: This electroencephalogram with the patient awake and asleep is abnormal because of a mild, diffuse disturbance of cerebral activity with also a focal disturbance over the right hemisphere. No epileptic activity is observed. Findings are consistent with encephalopathy including some post-ictal state, as well as dysfunction of the right hemisphere, which is consistent with known history of right hemispheric strokes. Thank you for letting us help with the patient's care. MAIRA ASHLEY MD DR: LAURIE/dennis JOB#: [id number] / [id number] LINA Irby MD
[2017-06-17 19:00] VITALS: BP 138/51
[2017-06-17] MEDS: BACLOFEN 10 MG TABLET. PO SCH (21:25)
[2017-06-17 23:00] VITALS: BP 126/54
[2017-06-18 03:16] VITALS: BP 145/60
[2017-06-18] MEDS: LEVOTHYROXINE 100 MCG TABLET PO SCH (05:59)
[2017-06-18] MEDS: CETIRIZINE HCL 10 MG TABLET. PO SCH (05:59)
[2017-06-18 07:00] VITALS: BP 140/68
[2017-06-18] MEDS: PANTOPRAZOLE 40 MG TABLET.DR. PO SCH (08:43)
[2017-06-18] MEDS: CALCIUM ACETATE 667 MG CAPSULE PO SCH ×3 (08:44→17:31)
[2017-06-18] MEDS ORDERED: IV NORMAL SALINE 1000ML BAG 1,000 ML IV PRN ×2 (09:32)
[2017-06-18] MEDS ORDERED: DIALYSIS PATIENT. MC PRN ×2 (09:45)
--- NOTE | 2017-06-18 10:01 | PDOC ---
Infectious Disease Note Subjective Subjective Doing ok feels back to baseline "Jerks are better" ROS ROS GEN: Denies fevers, chills, sweats HEENT: Denies blurred vision, sore throat CV: Denies chest pain RESP: Denies shortness of air, cough GI: Denies n/v/d NEURO: Denies confusion, dizziness MSK: Denies weakness, joint pain/swelling Vital Sign Vital Signs Vital Signs Date Time Temp Pulse Resp B/P (MAP) Pulse Ox O2 Delivery O2 Flow Rate FiO2 06/18/17 07:00 96.7 55 18 140/68 (92) 98 Room Air 96.7 Physical Exam PHYSICAL EXAM GENERAL: Propped up in bed, smiling Oc/Op -clear LUNGS: Clear HEART: S1S2, + murmur ABD: Soft, NT, BS active EXT: No edema, no cyanosis; LUE-AV unremarkable SENIOR PHYSICIAN: Awake, 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 IV: ok, Labs Lab Laboratory Tests Test 06/17/17 15:05 Sodium Level 143 mmol/L (136-145) Potassium Level 3.9 mmol/L (3.5-5.1) Chloride Level 100 mmol/L (98-107) Carbon Dioxide Level 33 mmol/L (21-32) Anion Gap 10 (6-14) Blood Urea Nitrogen 55 mg/dL (7-20) Creatinine 9.1 mg/dL (0.6-1.0) Estimated GFR (Cockcroft-Gault) 5.3 Glucose Level 103 mg/dL (70-99) Calcium Level 10.0 mg/dL (8.5-10.1) Objective Assessment Fever, ? viral - better ESRD SOB, chf Weakness BC 1/6 G + cocci, likely contaminant, MRSE. Conteh with one anerobic bottle also but MSSE mild twitch - has h/o - better Plan Plan of Care vancomycin for 2 more doses outpatient Ok d/c home D/w MADISON Martinez MD Jun 18, 2017 10:01
--- NOTE | 2017-06-18 11:07 | PDOC ---
PROGRESS NOTES Assessment Problems Medical Problems: (1) Acute respiratory failure Status: Acute (2) Aspiration into lower respiratory tract Status: Acute (3) Congestive heart failure Status: Acute Metabolic encephalopathy. 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 Obesity. Dr. Tovar noted myoclonus, none apparent on my exam Plan Continue Tracey and Rosibel Oron[place] for discharge Follow-up with me or Dr. Gerber in 2 months. Objective Vital Signs Date Time Temp Pulse Resp B/P (MAP) Pulse Ox O2 Delivery O2 Flow Rate FiO2 06/18/17 07:00 96.7 55 18 140/68 (92) 98 Room Air 96.7 PHYSICAL EXAM Alert. Oriented to time, place and person. PERRL. EOMI. CN: Left central facial weakness, otherwise no focal findings. Muscle tone: increased on left Muscle strength: 3/5 left arm, 4/5 left leg, 5/5 on right DTR: 1-2+ Plantar reflex: flexor Gait: not examined in bed. Sensory exam: no abnormal findings. No cerebellar signs elicited. Review of Relevant I have reviewed the following items deni (where applicable) has been applied. Labs Laboratory Tests Test 06/17/17 15:05 Sodium Level 143 mmol/L (136-145) Potassium Level 3.9 mmol/L (3.5-5.1) Chloride Level 100 mmol/L (98-107) Carbon Dioxide Level 33 mmol/L (21-32) Anion Gap 10 (6-14) Blood Urea Nitrogen 55 mg/dL (7-20) Creatinine 9.1 mg/dL (0.6-1.0) Estimated GFR (Cockcroft-Gault) 5.3 Glucose Level 103 mg/dL (70-99) Calcium Level 10.0 mg/dL (8.5-10.1) Laboratory Tests Test 06/17/17 15:05 Sodium Level 143 mmol/L (136-145) Potassium Level 3.9 mmol/L (3.5-5.1) Chloride Level 100 mmol/L (98-107) Carbon Dioxide Level 33 mmol/L (21-32) Anion Gap 10 (6-14) Blood Urea Nitrogen 55 mg/dL (7-20) Creatinine 9.1 mg/dL (0.6-1.0) Estimated GFR (Cockcroft-Gault) 5.3 Glucose Level 103 mg/dL (70-99) Calcium Level 10.0 mg/dL (8.5-10.1) Microbiology 06/12/17 Blood Culture - Final, Complete NO GROWTH AFTER 5 DAYS Medications Current Medications Albuterol/ Ipratropium (Duoneb) 3 ml 1X ONCE NEB Last administered on 17:15; Start 06/12/17 at 16:45; Stop 06/12/17 at 16:46; Status DC Piperacillin Sod/ Tazobactam Sod 3.375 gm/Sodium Chloride 50 ml @ 100 mls/hr 1X ONCE IV Last administered on 06/12/17 19:11; Start 06/12/17 at 19:15; Stop 06/12/17 at 19:44; Status DC Ondansetron HCl (Zofran) 4 mg PRN Q8HRS PRN IV NAUSEA/VOMITING; Start at 19:15; Stop 06/13/17 at 19:14; Status DC Albuterol/ Ipratropium (Duoneb) 3 ml RTQID NEB Last administered on 06/13/17 15:40; Start 06/12/17 at 20:00; Stop 06/13/17 at 19:59; Status DC Vancomycin HCl 1.5 gm/Sodium Chloride 500 ml @ 250 mls/hr 1X ONCE IV Last administered on 06/13/17 00:00; Start 06/12/17 at 20:45; Stop 06/12/17 at 22 :44; Status DC Vancomycin HCl (Vanco Per Pharmacy) 1 each PRN DAILY PRN MC SEE COMMENTS Last administered on 06/17/17 12:58; Start 06/12/17 at 20:30 Piperacillin Sod/ Tazobactam Sod 2.25 gm/Sodium Chloride 50 ml @ 100 mls/hr Q8HRS IV Last administered on 06/15/17 14:10; Start 06/13/17 at 06:00; Stop 06/15/17 at 15:42; Status DC Acetaminophen (Tylenol) 650 mg PRN Q8HRS PRN PEG MILD PAIN / TEMP Last administered on 06/12/17 21:01; Start 06/12/17 at 20:30; Stop 06/13/17 at 07 :21; Status DC Hydralazine HCl (Apresoline Inj) 10 mg PRN Q4HRS PRN IVP ELEVATED BP, SEE COMMENTS Last administered on 06/12/17 21:15; Start 06/12/17 at 20:30; Stop 06/13/17 at 00:28; Status DC Vancomycin HCl 1 each 1X ONCE MC Last administered on 06/14/17 04:33; Start 06/14/17 at 05:00; Stop 06/14/17 at 05:01; Status DC Aspirin (Ecotrin) 81 mg DAILY PO Last administered on 06/17/17 08:35; Start 06/13/17 at 09:00 Atorvastatin Calcium (Lipitor) 5 mg DAILY PO Last administered on 06/17/17 08 :37; Start 06/13/17 at 09:00 Baclofen (Lioresal) 5 mg HS PO Last administered on 06/17/17 21:25; Start at 21:00 Lacosamide (Vimpat) 50 mg 3X/WEEK PO Last administered on 06/17/17 08:37; Start 06/14/17 at 09:00 Levetiracetam (Keppra) 250 mg 3X/WEEK PO Last administered on 06/17/17 08:35 ; Start 06/14/17 at 09:00 Levothyroxine Sodium (Synthroid) 100 mcg DAILY07 PO Last administered on 05:59; Start 06/13/17 at 07:00 Pantoprazole Sodium (Protonix) 40 mg DAILYAC PO Last administered on 08:43; Start 06/13/17 at 07:30 Polyethylene Glycol (miraLAX PACKET) 17 gm DAILY PO Last administered on 08:37; Start 06/13/17 at 09:00 Calcium Acetate (Phoslo) 1,334 mg BIDACBL PO Last administered on 06/13/17 13 :06; Start 06/13/17 at 07:30; Stop 06/13/17 at 18:05; Status DC Citalopram Hydrobromide (CeleXA) 40 mg DAILY PO Last administered on 09:10; Start 06/13/17 at 09:00; Stop 06/16/17 at 11:31; Status DC Lacosamide (Vimpat) 100 mg BID PO Last administered on 06/16/17 09:10; Start 06/12/17 at 22:00; Stop 06/16/17 at 14:51; Status DC Levetiracetam (Keppra) 1,000 mg BID PO Last administered on 06/17/17 21:25; Start 06/12/17 at 22:00 Cetirizine HCl (ZyrTEC) 10 mg DAILY07 PO Last administered on 06/18/17 05:59 ; Start 06/13/17 at 07:45 Vitamin D (Vitamin D3) 1,000 unit DAILY PO Last administered on 06/17/17 08: 37; Start 06/13/17 at 09:00 Lactulose 20 gm PRN DAILY PRN PO CONSTIPATION; Start 06/12/17 at 20:45 Heparin Sodium (Porcine) (Heparin Sq) 5,000 unit Q12HR SQ Last administered on 06/17/17 09:00; Start 06/13/17 at 09:00; Stop 06/17/17 at 10:13; Status DC Sodium Chloride 1,000 ml @ 400 mls/hr Q2H30M PRN IV PATENCY; Start 06/12/17 at 22:31; Stop 06/13/17 at 10:30; Status DC Info (PHARMACY MONITORING -- do not chart) 1 each PRN DAILY PRN MC SEE COMMENTS ; Start 06/12/17 at 22:45 Hydralazine HCl (Apresoline Inj) 10 mg PRN Q3HRS PRN IVP ELEVATED BP, SEE COMMENTS Last administered on 06/13/17 00:37; Start 06/13/17 at 00:30 Acetaminophen/ Hydrocodone Bitart (Lortab 5/325) 1 tab PRN Q6HRS PRN PO MODERATE PAIN Last administered on 06/17/17 08:40; Start 06/13/17 at 00:30 Acetaminophen (Tylenol) 650 mg PRN Q8HRS PRN PO FEVER Last administered on 16:13; Start 06/13/17 at 07:30 Darbepoetin Deion (Aranesp) 60 mcg WEEKLYHS SQ Last administered on 06/13/17 21:22; Start 06/13/17 at 21:00 Calcium Acetate (Phoslo) 667 mg TIDWMEALS PO Last administered on 06/18/17 08 :44; Start 06/13/17 at 18:15 Sodium Chloride 1,000 ml @ 1,000 mls/hr Q1H PRN IV hypotension; Start at 06:25; Stop 06/14/17 at 12:24; Status DC Sodium Chloride 1,000 ml @ 400 mls/hr Q2H30M PRN IV PATENCY; Start 06/14/17 at 06:25; Stop 06/14/17 at 18:24; Status DC Info (PHARMACY MONITORING -- do not chart) 1 each PRN DAILY PRN MC SEE COMMENTS ; Start 06/14/17 at 06:30; Status Cancel Vancomycin HCl 500 mg/Sodium Chloride 100 ml @ 100 mls/hr QMWF IV Last administered on 06/14/17 14:56; Start 06/14/17 at 14:00; Stop 06/17/17 at 17 :25; Status DC Citalopram Hydrobromide (CeleXA) 20 mg DAILY PO Last administered on 08:34; Start 06/17/17 at 09:00 Lacosamide (Vimpat) 150 mg BID PO Last administered on 06/17/17 21:25; Start 06/16/17 at 21:00 Acetaminophen/ Hydrocodone Bitart (Lortab 5/325) 1 tab 1X ONCE PO Last administered on 06/16/17 23:52; Start 06/17/17 at 00:15; Stop 06/17/17 at 00 :16; Status DC Alprazolam (Xanax) 0.25 mg 1X ONCE PO Last administered on 06/16/17 23:51; Start 06/17/17 at 00:00; Stop 06/17/17 at 00:01; Status DC Alprazolam (Xanax) 0.25 mg 1X ONCE PO ; Start 06/17/17 at 01:30; Stop at 01:31; Status UNV Vancomycin HCl 500 mg/Sodium Chloride 100 ml @ 100 mls/hr 1X ONCE IV ; Start 06/18/17 at 14:00; Stop 06/18/17 at 14:59 Sodium Chloride 1,000 ml @ 1,000 mls/hr Q1H PRN IV hypotension; Start at 09:32; Stop 06/18/17 at 15:31 Sodium Chloride 1,000 ml @ 400 mls/hr Q2H30M PRN IV PATENCY; Start 06/18/17 at 09:32; Stop 06/18/17 at 21:31 Info (PHARMACY MONITORING -- do not chart) 1 each PRN DAILY PRN MC SEE COMMENTS ; Start 06/18/17 at 09:45 Info (PHARMACY MONITORING -- do not chart) 1 each PRN DAILY PRN MC SEE COMMENTS ; Start 06/18/17 at 09:45 Active Scripts Active Reported Generlac (Lactulose) 10 Gm/15 Ml Solution 20 Gm PO Lexapro (Escitalopram Oxalate) 20 Mg Tablet 0.5 Tab PO DAILY Polyethylene Glycol 3350 255 Gm Powder 17 Gm PO DAILY Levothyroxine Sodium 100 Mcg Tablet 1 Tab PO DAILY Levetiracetam 500 Mg Tablet 250 Mg PO 3X/WEEK Keppra (Levetiracetam) 1,000 Mg Tablet 1,000 Mg PO BID Vimpat (Lacosamide) 100 Mg Tablet 100 Mg PO BID Vimpat (Lacosamide) 50 Mg Tablet 50 Mg PO 3X/WEEK Take after Dialysis Baclofen 10 Mg Tablet 5 Mg PO HS Atorvastatin Calcium 10 Mg Tablet 5 Mg PO DAILY Calcium Acetate 667 Mg Tablet 667 Mg PO TIDWMEALS Vitamin D3 (Cholecalciferol (Vitamin D3)) 1,000 Unit Capsule 1,000 Unit PO Loratadine 10 Mg Tablet 1 Tab PO DAILY Aspirin Ec (Aspirin) 81 Mg Tablet. 1 Tab PO DAILY Pantoprazole Sodium 40 Mg Tablet.dr 40 Mg PO DAILY Vitals/I & O Vital Sign - Last 24 Hours 06/17/17 06/17/17 06/17/17 06/18/17 15:00 19:00 23:00 03:16 Temp 96.6 96.6 97.5 96.6 96.6 96.6 97.5 96.6 Pulse 51 52 47 53 Resp 18 20 20 20 B/P (MAP) 135/44 (74) 138/51 (80) 126/54 (78) 145/60 (88) Pulse Ox 99 100 98 96 O2 Delivery Room Air Room Air Room Air Room Air 06/18/17 07:00 Temp 96.7 96.7 Pulse 55 Resp 18 B/P (MAP) 140/68 (92) Pulse Ox 98 O2 Delivery Room Air Images EEG showed no epileptic activity, right hemispheric slowing, diffuse slowing MAIRA ASHLEY MD Jun 18, 2017 11:07
--- NOTE | 2017-06-18 11:34 | PDOC ---
Dialysis Progress Note Dialysis Note Dialysis Note Seen on Hemodialysis, tolerating treatment Well Vitals on Hemodialysis: 108/55 49 General Appearance: Awake: Alert Oriented x 1-2 Neck: No JVD or JVP Chest: CTA Sanket Heart: S1 S2 Abdomen - Soft NTND Extremities - No Edema ESRD: Dialysis as below F 180 NR 3 Hrs 3 K 2.5 Ca 140 Na 30 HC03 Qb 350 + Qd 500+ Heparin 0 Units Uf 2 Kgs or to dry weight as tolerated May give 25-50 gms of 25% Albumin if needed to maintain Hemodynamic stability Treatment plan reviewed and discussed with machine operator farmworker Vitals Vital Signs Vital Signs Date Time Temp Pulse Resp B/P (MAP) Pulse Ox O2 Delivery O2 Flow Rate FiO2 06/18/17 07:00 96.7 55 18 140/68 (92) 98 Room Air 96.7 06/16/17 20:36 2.0 Labs Last Labs Laboratory Tests Test 06/17/17 15:05 Sodium Level 143 mmol/L (136-145) Potassium Level 3.9 mmol/L (3.5-5.1) Chloride Level 100 mmol/L (98-107) Carbon Dioxide Level 33 mmol/L (21-32) Anion Gap 10 (6-14) Blood Urea Nitrogen 55 mg/dL (7-20) Creatinine 9.1 mg/dL (0.6-1.0) Estimated GFR (Cockcroft-Gault) 5.3 Glucose Level 103 mg/dL (70-99) Calcium Level 10.0 mg/dL (8.5-10.1) Laboratory Tests Test 06/17/17 15:05 Sodium Level 143 mmol/L (136-145) Potassium Level 3.9 mmol/L (3.5-5.1) Chloride Level 100 mmol/L (98-107) Carbon Dioxide Level 33 mmol/L (21-32) Anion Gap 10 (6-14) Blood Urea Nitrogen 55 mg/dL (7-20) Creatinine 9.1 mg/dL (0.6-1.0) Estimated GFR (Cockcroft-Gault) 5.3 Glucose Level 103 mg/dL (70-99) Calcium Level 10.0 mg/dL (8.5-10.1) Assessment Assessment Problems Medical Problems: (1) Acute respiratory failure Status: Acute (2) Aspiration into lower respiratory tract Status: Acute (3) Congestive heart failure Status: Acute Problems: Plan Plan of Care Problems Medical Problems: (1) Acute respiratory failure Status: Acute (2) Aspiration into lower respiratory tract Status: Acute (3) Congestive heart failure Status: Acute ALEJANDRO GOODMAN MD Jun 18, 2017 11:34
[2017-06-18] MEDS: VANCOMYCIN PER PHARMACY MC PRN (12:37)
[2017-06-18] MEDS: HYDROcodone/APAP 5/325MG 1 TAB TABLET PO PRN (12:39)
[2017-06-18] MEDS ORDERED: VANCOMYCIN 500 MG in IV NORMAL SALINE 100ML 100 ML IV ONE (14:00)
[2017-06-18] MEDS: ASPIRIN ENTERIC COATED 81 MG TABLET.DR. PO SCH (14:33)
[2017-06-18] MEDS: CITALOPRAM 20 MG TABLET. PO SCH (14:33)
[2017-06-18] MEDS: levETIRAcetam 500 MG TABLET PO SCH ×2 (14:34→20:30)
[2017-06-18] MEDS: ATORVASTATIN CALCIUM 10 MG TABLET. PO SCH (14:34)
[2017-06-18] MEDS: LACOSAMIDE 50 MG TABLET PO SCH ×2 (14:35→20:30)
[2017-06-18] MEDS: POLYETHYLENE GLYCOL 3350 17 GM PACKET. PO SCH (14:35)
[2017-06-18] MEDS: CHOLECALCIFEROL (VITAMIN D3) 1,000 UNIT TABLET PO SCH (14:36)
[2017-06-18 15:00] VITALS: BP 130/55
--- NOTE | 2017-06-18 18:14 | PDOC ---
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 contamination 1. Febrile illness.?viral vs bacterial 2. History of previous cerebrovascular accident. 3. History of previous aortic dissection, had surgery. 4. End-stage renal disease on hemodialysis 3 times a week. 5. History of seizures. 6. Hypertension. 7. Hyperlipidemia. PLAN: spoke with pts antonieta cox today with dialysis. plans to d/c home tomorrow. positive blood c/s1/6 staph epidermidis- likely contaminant. Problems: Plan Plan of Care Problems Medical Problems: (1) Acute respiratory failure Status: Acute (2) Aspiration into lower respiratory tract Status: Acute (3) Congestive heart failure Status: Acute Comment Review of Relevant I have reviewed the following items deni (where applicable) has been applied. Labs Microbiology 06/12/17 Blood Culture - Final, Complete NO GROWTH AFTER 5 DAYS Medications Current Medications Info (PHARMACY MONITORING -- do not chart) 1 each PRN DAILY PRN MC SEE COMMENTS ; Start 06/18/17 at 09:45; Status Cancel Info (PHARMACY MONITORING -- do not chart) 1 each PRN DAILY PRN MC SEE COMMENTS ; Start 06/18/17 at 09:45; Status Cancel Sodium Chloride 1,000 ml @ 400 mls/hr Q2H30M PRN IV PATENCY; Start 06/18/17 at 09:32; Stop 06/18/17 at 21:31 Sodium Chloride 1,000 ml @ 1,000 mls/hr Q1H PRN IV hypotension; Start at 09:32; Stop 06/18/17 at 15:31; Status DC Vancomycin HCl 500 mg/Sodium Chloride 100 ml @ 100 mls/hr 1X ONCE IV Last administered on 06/18/17t 14:38; Start 06/18/17 at 14:00; Stop 06/18/17 at 14 :59; Status DC Vitals/I & O Vital Sign - Last 24 Hours 06/17/17 06/17/17 06/18/17 06/18/17 19:00 23:00 03:16 07:00 Temp 96.6 97.5 96.6 96.7 96.6 97.5 96.6 96.7 Pulse 52 47 53 55 Resp 20 20 20 18 B/P (MAP) 138/51 (80) 126/54 (78) 145/60 (88) 140/68 (92) Pulse Ox 100 98 96 98 O2 Delivery Room Air Room Air Room Air Room Air 06/18/17 06/18/17 06/18/17 12:39 13:39 15:00 Temp 96.9 96.9 Pulse 50 Resp 18 20 18 B/P (MAP) 130/55 (80) Pulse Ox 98 99 O2 Delivery Room Air Room Air LINA ANDERSON MD Jun 18, 2017 18:14
[2017-06-18 19:00] VITALS: BP 126/57
[2017-06-18] MEDS: BACLOFEN 10 MG TABLET. PO SCH (20:30)
[2017-06-18 23:00] VITALS: BP 141/57
[2017-06-19 03:20] VITALS: BP 136/60
[2017-06-19] MEDS: HYDROcodone/APAP 5/325MG 1 TAB TABLET PO PRN (04:37)
[2017-06-19] MEDS: CETIRIZINE HCL 10 MG TABLET. PO SCH ×2 (05:45→08:05)
[2017-06-19] MEDS: LEVOTHYROXINE 100 MCG TABLET PO SCH (05:45)
[2017-06-19 07:00] VITALS: BP 143/66
[2017-06-19] MEDS: ASPIRIN ENTERIC COATED 81 MG TABLET.DR. PO SCH (08:04)
[2017-06-19] MEDS: PANTOPRAZOLE 40 MG TABLET.DR. PO SCH (08:04)
[2017-06-19] MEDS: ATORVASTATIN CALCIUM 10 MG TABLET. PO SCH (08:05)
[2017-06-19] MEDS: CHOLECALCIFEROL (VITAMIN D3) 1,000 UNIT TABLET PO SCH (08:05)
[2017-06-19] MEDS: levETIRAcetam 250 MG TABLET PO SCH (08:05)
[2017-06-19] MEDS: CITALOPRAM 20 MG TABLET. PO SCH (08:05)
[2017-06-19] MEDS: CALCIUM ACETATE 667 MG CAPSULE PO SCH ×2 (08:06→13:45)
[2017-06-19] MEDS: levETIRAcetam 500 MG TABLET PO SCH (08:06)
[2017-06-19] MEDS: POLYETHYLENE GLYCOL 3350 17 GM PACKET. PO SCH (08:06)
[2017-06-19] MEDS ORDERED: diphenhydrAMINE 50 MG/ML VIAL IV PRN ×2 (09:45)
[2017-06-19] MEDS ORDERED: IV NORMAL SALINE 1000ML BAG 1,000 ML IV PRN ×2 (09:45)
[2017-06-19] MEDS ORDERED: DIALYSIS PATIENT. MC PRN (09:45)
--- NOTE | 2017-06-19 09:53 | PDOC ---
Dialysis Progress Note Dialysis Note Dialysis Note Seen on Hemodialysis, tolerating treatment Well Vitals on Hemodialysis: 126/57 69 afeb General Appearance: Awake: Alert Oriented x 2 Neck: No JVD or JVP Chest: CTA Sanket Heart: S1 S2 Abdomen - Soft NTND Extremities - No Edema ESRD: Dialysis as below F 180 NR 3 Hrs 3 K 2.5 Ca 140 Na 30 HC03 Qb 350 + Qd 500+ Heparin 0 Units Uf 1- 2 Kgs or to dry weight as tolerated May give 25-50 gms of 25% Albumin if needed to maintain Hemodynamic stability Treatment plan reviewed and discussed with 3rd pressman Vitals Vital Signs Vital Signs Date Time Temp Pulse Resp B/P (MAP) Pulse Ox O2 Delivery O2 Flow Rate FiO2 06/19/17 08:00 Room Air 2.0 06/19/17 07:00 97.5 43 18 143/66 (91) 98 97.5 Labs Last Labs Laboratory Tests Test 06/17/17 15:05 Sodium Level 143 mmol/L (136-145) Potassium Level 3.9 mmol/L (3.5-5.1) Chloride Level 100 mmol/L (98-107) Carbon Dioxide Level 33 mmol/L (21-32) Anion Gap 10 (6-14) Blood Urea Nitrogen 55 mg/dL (7-20) Creatinine 9.1 mg/dL (0.6-1.0) Estimated GFR (Cockcroft-Gault) 5.3 Glucose Level 103 mg/dL (70-99) Calcium Level 10.0 mg/dL (8.5-10.1) Assessment Assessment Problems Medical Problems: (1) Acute respiratory failure Status: Acute (2) Aspiration into lower respiratory tract Status: Acute (3) Congestive heart failure Status: Acute Problems: Plan Plan of Care Problems Medical Problems: (1) Acute respiratory failure Status: Acute (2) Aspiration into lower respiratory tract Status: Acute (3) Congestive heart failure Status: Acute ALEJANDRO GOODMAN MD Jun 19, 2017 09:53
--- NOTE | 2017-06-19 10:27 | PDOC ---
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 Febrile illness. bacterial 2. History of previous cerebrovascular accident. 3. History of previous aortic dissection, had surgery. 4. End-stage renal disease on hemodialysis 3 times a week. 5. History of seizures. 6. Hypertension. 7. Hyperlipidemia. PLAN: spoke with pts vanco dose today with dialysis. plans to d/c home today positive blood c/s1/6 staph epidermidis 1 more dose of vanco with dialysis on saturday out pt. spoke with ID and Reanal Problems: Plan Plan of Care Problems Medical Problems: (1) Acute respiratory failure Status: Acute (2) Aspiration into lower respiratory tract Status: Acute (3) Congestive heart failure Status: Acute Comment Review of Relevant I have reviewed the following items deni (where applicable) has been applied. Labs Microbiology 06/12/17 Blood Culture - Final, Complete NO GROWTH AFTER 5 DAYS Medications Current Medications Diphenhydramine HCl (Benadryl) 25 mg 1X PRN PRN IV ITCHING; Start 06/19/17 at 09:45; Stop 06/20/17 at 09:44 Diphenhydramine HCl (Benadryl) 25 mg 1X PRN PRN IV ITCHING; Start 06/19/17 at 09:45; Stop 06/20/17 at 09:44 Info (PHARMACY MONITORING -- do not chart) 1 each PRN DAILY PRN MC SEE COMMENTS ; Start 06/19/17 at 09:45; Status UNV Sodium Chloride 1,000 ml @ 400 mls/hr Q2H30M PRN IV PATENCY; Start 06/19/17 at 09:45; Stop 06/19/17 at 21:44 Sodium Chloride 1,000 ml @ 1,000 mls/hr Q1H PRN IV hypotension; Start at 09:45; Stop 06/19/17 at 15:44 Vancomycin HCl 500 mg/Sodium Chloride 100 ml @ 100 mls/hr 1X ONCE IV Last administered on 06/18/17t 14:38; Start 06/18/17 at 14:00; Stop 06/18/17 at 14 :59; Status DC Vitals/I & O Vital Sign - Last 24 Hours 06/18/17 06/18/17 06/18/17 06/18/17 12:39 13:39 15:00 19:00 Temp 96.9 98.5 96.9 98.5 Pulse 50 74 Resp 18 20 18 20 B/P (MAP) 130/55 (80) 126/57 (80) Pulse Ox 98 99 98 O2 Delivery Room Air Room Air Room Air 06/18/17 06/18/17 06/19/17 06/19/17 19:46 23:00 03:20 04:37 Temp 96.1 97.5 96.1 97.5 Pulse 51 54 Resp 20 20 B/P (MAP) 141/57 (85) 136/60 (85) Pulse Ox 97 95 95 O2 Delivery Room Air Room Air Room Air Room Air 06/19/17 06/19/17 07:00 08:00 Temp 97.5 97.5 Pulse 43 Resp 18 B/P (MAP) 143/66 (91) Pulse Ox 98 O2 Delivery Room Air Room Air O2 Flow Rate 2.0 LINA ANDERSON MD Jun 19, 2017 10:27
--- NOTE | 2017-06-19 11:20 | PDOC ---
PROGRESS NOTES Assessment Problems Medical Problems: (1) Acute respiratory failure Status: Acute (2) Aspiration into lower respiratory tract Status: Acute (3) Congestive heart failure Status: Acute Metabolic encephalopathy. 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 Obesity. Myoclonus, none apparent on my exam Plan Continue Tracey and Rosibel Oron[place] for discharge Follow-up with me or Dr. Gerber in 2 months. Subjective No complaints, ready for discharge Objective Vital Signs Date Time Temp Pulse Resp B/P (MAP) Pulse Ox O2 Delivery O2 Flow Rate FiO2 06/19/17 08:00 Room Air 2.0 06/19/17 07:00 97.5 43 18 143/66 (91) 98 97.5 PHYSICAL EXAM Alert. Oriented to time, place and person. PERRL. EOMI. CN: Left central facial weakness, otherwise no focal findings. Muscle tone: increased on left Muscle strength: 3/5 left arm, 4/5 left leg, 5/5 on right DTR: 1-2+ Plantar reflex: flexor Gait: not examined in bed. Sensory exam: no abnormal findings. No cerebellar signs elicited. Review of Relevant I have reviewed the following items deni (where applicable) has been applied. Labs Laboratory Tests Test 06/17/17 15:05 Sodium Level 143 mmol/L (136-145) Potassium Level 3.9 mmol/L (3.5-5.1) Chloride Level 100 mmol/L (98-107) Carbon Dioxide Level 33 mmol/L (21-32) Anion Gap 10 (6-14) Blood Urea Nitrogen 55 mg/dL (7-20) Creatinine 9.1 mg/dL (0.6-1.0) Estimated GFR (Cockcroft-Gault) 5.3 Glucose Level 103 mg/dL (70-99) Calcium Level 10.0 mg/dL (8.5-10.1) Microbiology 06/12/17 Blood Culture - Final, Complete NO GROWTH AFTER 5 DAYS Medications Current Medications Albuterol/ Ipratropium (Duoneb) 3 ml 1X ONCE NEB Last administered on t 17:15; Start 06/12/17 at 16:45; Stop 06/12/17 at 16:46; Status DC Piperacillin Sod/ Tazobactam Sod 3.375 gm/Sodium Chloride 50 ml @ 100 mls/hr 1X ONCE IV Last administered on 06/12/17 19:11; Start 06/12/17 at 19:15; Stop 06/12/17 at 19:44; Status DC Ondansetron HCl (Zofran) 4 mg PRN Q8HRS PRN IV NAUSEA/VOMITING; Start at 19:15; Stop 06/13/17 at 19:14; Status DC Albuterol/ Ipratropium (Duoneb) 3 ml RTQID NEB Last administered on 06/13/17 15:40; Start 06/12/17 at 20:00; Stop 06/13/17 at 19:59; Status DC Vancomycin HCl 1.5 gm/Sodium Chloride 500 ml @ 250 mls/hr 1X ONCE IV Last administered on 06/13/17 00:00; Start 06/12/17 at 20:45; Stop 06/12/17 at 22 :44; Status DC Vancomycin HCl (Vanco Per Pharmacy) 1 each PRN DAILY PRN MC SEE COMMENTS Last administered on 06/18/17 12:37; Start 06/12/17 at 20:30 Piperacillin Sod/ Tazobactam Sod 2.25 gm/Sodium Chloride 50 ml @ 100 mls/hr Q8HRS IV Last administered on 06/15/17 14:10; Start 06/13/17 at 06:00; Stop 06/15/17 at 15:42; Status DC Acetaminophen (Tylenol) 650 mg PRN Q8HRS PRN PEG MILD PAIN / TEMP Last administered on 06/12/17 21:01; Start 06/12/17 at 20:30; Stop 06/13/17 at 07 :21; Status DC Hydralazine HCl (Apresoline Inj) 10 mg PRN Q4HRS PRN IVP ELEVATED BP, SEE COMMENTS Last administered on 06/12/17 21:15; Start 06/12/17 at 20:30; Stop 06/13/17 at 00:28; Status DC Vancomycin HCl 1 each 1X ONCE MC Last administered on 06/14/17 04:33; Start 06/14/17 at 05:00; Stop 06/14/17 at 05:01; Status DC Aspirin (Ecotrin) 81 mg DAILY PO Last administered on 06/19/17 08:04; Start 06/13/17 at 09:00 Atorvastatin Calcium (Lipitor) 5 mg DAILY PO Last administered on 06/19/17 08 :05; Start 06/13/17 at 09:00 Baclofen (Lioresal) 5 mg HS PO Last administered on 06/18/17 20:30; Start at 21:00 Lacosamide (Vimpat) 50 mg 3X/WEEK PO Last administered on 06/17/17 08:37; Start 06/14/17 at 09:00 Levetiracetam (Keppra) 250 mg 3X/WEEK PO Last administered on 06/19/17 08:05 ; Start 06/14/17 at 09:00 Levothyroxine Sodium (Synthroid) 100 mcg DAILY07 PO Last administered on 05:45; Start 06/13/17 at 07:00 Pantoprazole Sodium (Protonix) 40 mg DAILYAC PO Last administered on 08:04; Start 06/13/17 at 07:30 Polyethylene Glycol (miraLAX PACKET) 17 gm DAILY PO Last administered on 08:06; Start 06/13/17 at 09:00 Calcium Acetate (Phoslo) 1,334 mg BIDACBL PO Last administered on 06/13/17 13 :06; Start 06/13/17 at 07:30; Stop 06/13/17 at 18:05; Status DC Citalopram Hydrobromide (CeleXA) 40 mg DAILY PO Last administered on 09:10; Start 06/13/17 at 09:00; Stop 06/16/17 at 11:31; Status DC Lacosamide (Vimpat) 100 mg BID PO Last administered on 06/16/17 09:10; Start 06/12/17 at 22:00; Stop 06/16/17 at 14:51; Status DC Levetiracetam (Keppra) 1,000 mg BID PO Last administered on 06/19/17 08:06; Start 06/12/17 at 22:00 Cetirizine HCl (ZyrTEC) 10 mg DAILY07 PO Last administered on 06/19/17 08:05 ; Start 06/13/17 at 07:45 Vitamin D (Vitamin D3) 1,000 unit DAILY PO Last administered on 06/19/17 08: 05; Start 06/13/17 at 09:00 Lactulose 20 gm PRN DAILY PRN PO CONSTIPATION; Start 06/12/17 at 20:45 Heparin Sodium (Porcine) (Heparin Sq) 5,000 unit Q12HR SQ Last administered on 06/17/17 09:00; Start 06/13/17 at 09:00; Stop 06/17/17 at 10:13; Status DC Sodium Chloride 1,000 ml @ 400 mls/hr Q2H30M PRN IV PATENCY; Start 06/12/17 at 22:31; Stop 06/13/17 at 10:30; Status DC Info (PHARMACY MONITORING -- do not chart) 1 each PRN DAILY PRN MC SEE COMMENTS ; Start 06/12/17 at 22:45 Hydralazine HCl (Apresoline Inj) 10 mg PRN Q3HRS PRN IVP ELEVATED BP, SEE COMMENTS Last administered on 06/13/17 00:37; Start 06/13/17 at 00:30 Acetaminophen/ Hydrocodone Bitart (Lortab 5/325) 1 tab PRN Q6HRS PRN PO MODERATE PAIN Last administered on 06/19/17 04:37; Start 06/13/17 at 00:30 Acetaminophen (Tylenol) 650 mg PRN Q8HRS PRN PO FEVER Last administered on 16:13; Start 06/13/17 at 07:30 Darbepoetin Deion (Aranesp) 60 mcg WEEKLYHS SQ Last administered on 06/13/17 21:22; Start 06/13/17 at 21:00 Calcium Acetate (Phoslo) 667 mg TIDWMEALS PO Last administered on 06/19/17 08 :06; Start 06/13/17 at 18:15 Sodium Chloride 1,000 ml @ 1,000 mls/hr Q1H PRN IV hypotension; Start at 06:25; Stop 06/14/17 at 12:24; Status DC Sodium Chloride 1,000 ml @ 400 mls/hr Q2H30M PRN IV PATENCY; Start 06/14/17 at 06:25; Stop 06/14/17 at 18:24; Status DC Info (PHARMACY MONITORING -- do not chart) 1 each PRN DAILY PRN MC SEE COMMENTS ; Start 06/14/17 at 06:30; Status Cancel Vancomycin HCl 500 mg/Sodium Chloride 100 ml @ 100 mls/hr QMWF IV Last administered on 06/14/17 14:56; Start 06/14/17 at 14:00; Stop 06/17/17 at 17 :25; Status DC Citalopram Hydrobromide (CeleXA) 20 mg DAILY PO Last administered on 08:05; Start 06/17/17 at 09:00 Lacosamide (Vimpat) 150 mg BID PO Last administered on 06/18/17 20:30; Start 06/16/17 at 21:00 Acetaminophen/ Hydrocodone Bitart (Lortab 5/325) 1 tab 1X ONCE PO Last administered on 06/16/17 23:52; Start 06/17/17 at 00:15; Stop 06/17/17 at 00 :16; Status DC Alprazolam (Xanax) 0.25 mg 1X ONCE PO Last administered on 06/16/17 23:51; Start 06/17/17 at 00:00; Stop 06/17/17 at 00:01; Status DC Alprazolam (Xanax) 0.25 mg 1X ONCE PO ; Start 06/17/17 at 01:30; Stop at 01:31; Status UNV Vancomycin HCl 500 mg/Sodium Chloride 100 ml @ 100 mls/hr 1X ONCE IV Last administered on 06/18/17 14:38; Start 06/18/17 at 14:00; Stop 06/18/17 at 14 :59; Status DC Sodium Chloride 1,000 ml @ 1,000 mls/hr Q1H PRN IV hypotension; Start at 09:32; Stop 06/18/17 at 15:31; Status DC Sodium Chloride 1,000 ml @ 400 mls/hr Q2H30M PRN IV PATENCY; Start 06/18/17 at 09:32; Stop 06/18/17 at 21:31; Status DC Info (PHARMACY MONITORING -- do not chart) 1 each PRN DAILY PRN MC SEE COMMENTS ; Start 06/18/17 at 09:45; Status Cancel Info (PHARMACY MONITORING -- do not chart) 1 each PRN DAILY PRN MC SEE COMMENTS ; Start 06/18/17 at 09:45; Status Cancel Sodium Chloride 1,000 ml @ 1,000 mls/hr Q1H PRN IV hypotension; Start at 09:45; Stop 06/19/17 at 15:44 Diphenhydramine HCl (Benadryl) 25 mg 1X PRN PRN IV ITCHING; Start 06/19/17 at 09:45; Stop 06/20/17 at 09:44 Diphenhydramine HCl (Benadryl) 25 mg 1X PRN PRN IV ITCHING; Start 06/19/17 at 09:45; Stop 06/20/17 at 09:44 Sodium Chloride 1,000 ml @ 400 mls/hr Q2H30M PRN IV PATENCY; Start 06/19/17 at 09:45; Stop 06/19/17 at 21:44 Info (PHARMACY MONITORING -- do not chart) 1 each PRN DAILY PRN MC SEE COMMENTS ; Start 06/19/17 at 09:45; Status UNV Active Scripts Active Reported Generlac (Lactulose) 10 Gm/15 Ml Solution 20 Gm PO Lexapro (Escitalopram Oxalate) 20 Mg Tablet 0.5 Tab PO DAILY Polyethylene Glycol 3350 255 Gm Powder 17 Gm PO DAILY Levothyroxine Sodium 100 Mcg Tablet 1 Tab PO DAILY Levetiracetam 500 Mg Tablet 250 Mg PO 3X/WEEK Keppra (Levetiracetam) 1,000 Mg Tablet 1,000 Mg PO BID Vimpat (Lacosamide) 100 Mg Tablet 100 Mg PO BID Vimpat (Lacosamide) 50 Mg Tablet 50 Mg PO 3X/WEEK Take after Dialysis Baclofen 10 Mg Tablet 5 Mg PO HS Atorvastatin Calcium 10 Mg Tablet 5 Mg PO DAILY Calcium Acetate 667 Mg Tablet 667 Mg PO TIDWMEALS Vitamin D3 (Cholecalciferol (Vitamin D3)) 1,000 Unit Capsule 1,000 Unit PO Loratadine 10 Mg Tablet 1 Tab PO DAILY Aspirin Ec (Aspirin) 81 Mg Tablet. 1 Tab PO DAILY Pantoprazole Sodium 40 Mg Tablet.dr 40 Mg PO DAILY Vitals/I & O Vital Sign - Last 24 Hours 06/18/17 06/18/17 06/18/17 06/18/17 12:39 13:39 15:00 19:00 Temp 96.9 98.5 96.9 98.5 Pulse 50 74 Resp 18 20 18 20 B/P (MAP) 130/55 (80) 126/57 (80) Pulse Ox 98 99 98 O2 Delivery Room Air Room Air Room Air 06/18/17 06/18/17 06/19/17 06/19/17 19:46 23:00 03:20 04:37 Temp 96.1 97.5 96.1 97.5 Pulse 51 54 Resp 20 20 B/P (MAP) 141/57 (85) 136/60 (85) Pulse Ox 97 95 95 O2 Delivery Room Air Room Air Room Air Room Air 06/19/17 06/19/17 07:00 08:00 Temp 97.5 97.5 Pulse 43 Resp 18 B/P (MAP) 143/66 (91) Pulse Ox 98 O2 Delivery Room Air Room Air O2 Flow Rate 2.0 MAIRA ASHLEY MD Jun 19, 2017 11:20
[2017-06-19] MEDS: VANCOMYCIN PER PHARMACY MC PRN (11:49)
[2017-06-19] MEDS: LACOSAMIDE 50 MG TABLET PO SCH ×2 (13:45)
[2017-06-19] MEDS ORDERED: VANCOMYCIN 500 MG in IV NORMAL SALINE 100ML 100 ML IV ONE (15:00)
--- NOTE | 2017-06-22 22:22 | PDOC ---
Provider Note Provider Note Discharge summary dictated. #[id number] LINA ANDERSON MD Jun 22, 2017 22:22
--- NOTE | 2017-06-23 00:11 | DS ---
DATE OF DISCHARGE: 06/19/2017 REASON FOR ADMISSION TO THE HOSPITAL: Febrile illness, sepsis, Staph bacteremia. CONSULTATIONS: 1. Dr. Cho. 2. Dr. Gerber, Neurology. 3. Dr. Amaro, Nephrology. PROCEDURES DONE: 1. Hemodialysis. 2. EEG. HOSPITAL COURSE: The patient is a 62-year-old female with history of hypertension; stroke; renal failure, on hemodialysis. She also had an aortic dissection. Had a surgery and now she is on dialysis. She had a fever, and blood culture there was positive. She was sent to the Emergency Room. Her blood culture was positive for Staph coagulase-negative. The patient was given IV vanco and Zosyn initially. Later on Zosyn was stopped. The patient's white count was 8, hemoglobin 8.6, platelets 158. Electrolytes: Potassium 4.1, BUN 26, creatinine 7.0. Influenza A and B was negative. The patient's condition improved, moved out of the ICU. She had a history of seizures, previous strokes. On the medical floor, she had one witnessed seizure. Vimpat was increased from 100 b.i.d. to 150 mg twice a day. She was also on Keppra 1000 mg twice daily. On the whole, patient's condition improved. She got vancomycin with dialysis. She has one more dose of vanco to be given with her next dialysis, and she will be done with her antibiotic. The patient was discharged home with home health. FINAL DIAGNOSES: 1. Staph bacteremia. 2. Possible sepsis, secondary to staph infection. 3. End-stage renal disease, on hemodialysis. 4. Old cerebrovascular accident. 5. Seizures. Had one more witnessed seizure in the hospital. Medication was increased , Vimpat to 150 mg po bid. 6. Hypertension. 7. History of aortic dissection in the past. Had surgery done for that. LINA ANDERSON MD DR: MYRIAM/dennis JOB#: [id number] / [id number] BEBE Campa
== END 2017-06-19 14:52 | disposition home health service (06) | DRG 871 ==
LOC: ER 15:34 → 1 WEST ICU 19:00 → 5 NORTH 06-13 22:15
PROVIDERS: ADMIT Internal Medicine; ATTEND Internal Medicine
PROC: 5A1D70Z Performance of Urinary Filtration, Intermittent, Less than 6 Hours Per Day (ICD-10-PCS; principal; 2017-06-12)
PROC: 5A1D70Z Performance of Urinary Filtration, Intermittent, Less than 6 Hours Per Day (ICD-10-PCS; 2017-06-12)
DX: A41.9 Sepsis, unspecified organism (principal); J96.01 Acute respiratory failure with hypoxia; G93.41 Metabolic encephalopathy; I13.2 Hypertensive heart and chronic kidney disease with heart failure and with stage 5 chronic kidney disease, or end stage renal disease; N18.6 End stage renal disease; I69.954 Hemiplegia and hemiparesis following unspecified cerebrovascular disease affecting left non-dominant side; E11.22 Type 2 diabetes mellitus with diabetic chronic kidney disease; I50.9 Heart failure, unspecified; G40.909 Epilepsy, unspecified, not intractable, without status epilepticus; D64.9 Anemia, unspecified; E66.9 Obesity, unspecified; Z68.24 Body mass index [BMI] 24.0-24.9, adult; E78.5 Hyperlipidemia, unspecified; E89.0 Postprocedural hypothyroidism; M10.9 Gout, unspecified; Z82.49 Family history of ischemic heart disease and other diseases of the circulatory system; Z83.3 Family history of diabetes mellitus; Z87.11 Personal history of peptic ulcer disease; Z95.1 Presence of aortocoronary bypass graft; Z99.2 Dependence on renal dialysis; E21.3 Hyperparathyroidism, unspecified; F41.9 Anxiety disorder, unspecified; E78.00 Pure hypercholesterolemia, unspecified; Z88.5 Allergy status to narcotic agent; B95.8 Unspecified staphylococcus as the cause of diseases classified elsewhere
CPT/HCPCS: 36415; 36600; 71010; 80048; 80053; 80202; 82550; 82805; 83605; 83880; 84145; 84484; 85025; 85027; 87040; 87205; 87641; 87804; 93005; 94640; 95816; 96365; J0360; J0881; J2543; J3370; J7040; J7620; 97110; 97530; 97535; 99285-25

== ENCOUNTER 2018-01-15 18:23 | Emergency (ER) | payer MEDICARE, OTHER | END 2018-01-15 20:45 | disposition home or self-care (01) | LOC: ER 18:23 | DX: S31.41XA Laceration without foreign body of vagina and vulva, initial encounter (principal); I12.0 Hypertensive chronic kidney disease with stage 5 chronic kidney disease or end stage renal disease; N18.6 End stage renal disease; E07.89 Other specified disorders of thyroid; E11.22 Type 2 diabetes mellitus with diabetic chronic kidney disease; Z99.2 Dependence on renal dialysis; X58.XXXA Exposure to other specified factors, initial encounter; Y93.89 Activity, other specified; Y99.8 Other external cause status; Y92.89 Other specified places as the place of occurrence of the external cause | CPT/HCPCS: 99284 ==